=== PATIENT | female | born 1930 | race Caucasian/White ===

== ENCOUNTER 2018-11-29 19:24 | Emergency (ER) | payer OTHER ==
[2018-11-29 19:32] VITALS: TEMP 97.4; BMI 28.3
--- NOTE | 2018-11-29 20:07 | PDOC ---
History of Present Illness - General Chief Complaint: Injury Stated Complaint: FALL Time Seen by Provider: 11/29/18 19:42 - History of Present Illness Initial Comments: Lynda Odonnell is an 88yo woman with no known medical history who presents after a fall at home tonight. She is currently denying any injury or complaint. Ms Odonnell reports that she was walking into her bedroom and then suddenly found herself on the floor. She believes that she lost consciousness, and she states that she is sure she did not trip. She denies any feeling of chest pain, SOB, palpitations, lightheadedness, or any other symptom prior to the fall. She woke up on her own, but she says that she felt "funny" after the fall. She felt that she could move all of her extremities but felt unable to get up. Currently , she states that she feels completely normal and has no complaints. Past History - Past Medical History Allergies/Adverse Reactions: Allergies Allergy/AdvReac Type Severity Reaction Status Date / Time No Known Allergies Allergy Unverified 11/29/18 20:12 Home Medications: Ambulatory Orders NK [No Known Home Medication] 11/29/18 COPD: No Other medical history: denies - Suicide/Smoking/Psychosocial Hx Smoking History: Unknown if ever smoked Have you smoked in the past 12 months: No Information on smoking cessation initiated: No Hx Alcohol Use: No Drug/Substance Use Hx: No Review of Systems - Review of Systems Comments:: General: No fevers, no chills, no weight or appetite change, no malaise HEENT: No changes in vision, no changes in hearing, no congestion, no sore throat CV: No chest pain, no palpitations, no LE edema Pulm: No SOB, no cough, no wheezing GI: No nausea or vomiting, no change in bowel habits, no melena : No frequency, no urgency, no dysuria Musc: No back pain, no joint swelling, no recent injury Skin: No rash, no lesions, no erythema Endo: No excessive thirst, no heat/cold intolerance Heme: No unusual bruising or bleeding, no swollen glands Neuro: +LOC, no numbness/tingling, no focal weakness Vasc: No claudication Psych: No recent change in mood, no SI or HI *Physical Exam - Vital Signs Last Vital Signs Temp Pulse Resp BP Pulse Ox 97.4 F L 100 H 18 157/80 96 11/29/18 19:30 11/29/18 19:30 11/29/18 19:30 11/29/18 19:30 11/29/18 19:30 - Physical Exam Comments: General: Comfortable, no acute distress HEENT: PERRL, EOMI, MMM, voice normal, normal neck ROM, no LAD, no posterior neck TTP Cards: RRR, no murmur appreciated Pulm: Comfortable on room air, clear to auscultation bilaterally Abd: Soft, nontender, nondistended : No CVA tenderness Back: No TTP along spine or paraspinal muscles. Ext: Atraumatic. No LE edema. ROM intact. Strength 5/5 and equal bilaterally Vasc: Extremities WWP. Palpable radial and pedal pulses bilaterally Skin: Normal color, no rashes or lesions Neuro: A&Ox3, CN grossly intact, normal speech, motor/sensory grossly intact and symmetric Psych: Mood appropriate to situation Moderate Sedation - Procedure Monitoring Vital Signs: Procedure Monitoring Vital Signs Temperature 97.4 F L 11/29/18 19:30 Pulse Rate 100 H 11/29/18 19:30 Respiratory Rate 18 11/29/18 19:30 Blood Pressure 157/80 11/29/18 19:30 O2 Sat by Pulse Oximetry (%) 96 11/29/18 19:30 ED Treatment Course - LABORATORY CBC & Chemistry Diagram: 11/29/18 20:47 11/29/18 20:47 Medical Decision Making - Medical Decision Making 11/29/18 20:31 Lynda Odonnell is an 88yo woman with no known medical history who presents with an apparent LOC and fall at home this evening. She reports that she felt odd immediately after the fall, but she denies any injury or complaint at this time. - Fall does not appear to be mechanical in nature; Ms Odonnell states she was walking and then found herself on the ground. She does not believe that she tripped. - Could be secondary to arrhythmia, anemia, hypoglycemia, electrolyte abnormalities. Potentially PE or ACS, but less likely given lack of chest pain, SOB, or other associated symptoms - CBC, chemistry, EKG, CXR - CT head and c-spine to r/o bleed or acute injury given patient's age. However , no obvious injury. 11/29/18 22:09 - Labs completed. No concerning abnormalities noted. Mild hypomagensemia, hypoalbuminemia. - CT completed, reviewed in ED. No obvious bleed, fracture, or other injury. Radiology read pending - EKG showing a-fib, apparently new onset, w/ HR 106. Left axis deviation. Normal intervals. Poor r-wave progression, diffuse flattening of t-waves - Discussed admission for telemetry, cardiology evaluation with Ms Odonnell. She states that she "needs to go home." Dr Moura at bedside to again discuss admission. May need to have her AMA if she will not agree to admission. 11/29/18 22:20 - Ms Odonnell decided that she will leave AMA; she refuses admission - Will refer to cardiology and discuss return precautions 11/29/18 23:33 - Call received from Dr Mcleod (radiology) regarding c-spine CT. Initial read that there was no acute fracture, but will be changing read to indicate a non- displaced left C2 fracture - Hard c-collar placed - Discussed new result with Ms Odonnell. Strongly recommending that she stay for admission and treatment. Ms Odonnell continues to state she wishes to go home. Dr Moura will attempt to convince her to stay. - Per pt's nurse, Abbie, there was initially some concern that Ms Odonnell smelled of alcohol on arrival. Added alcohol level to chemistry sent previously. If she arrived intoxicated, will observe in the ED until clinically sober and will readdress admission. 11/30/18 00:06 - Alcohol level 168 - Will monitor in ED and re-address admission once Ms Odonnell is clinically sober - Pt pulled own IV. Will orally hydrate. 11/30/18 04:17 - Ms Odonnell is now clinically sober, A&Ox3. Appears to have significant difficulty ambulating without assistance. - After multiple discussions with both Dr Moura and myself, Ms Odonnell continues to insist on going home. She is unable to provide a reason why she wishes to leave, but she does appear to understand her diagnosis and the potential adverse outcomes of refusing treatment - Will attempt to get an ambulance to transport Ms Odonnell to her home. Discussed the potential consequences of leaving AMA as well as the importance of close follow up at length several times. 11/30/18 04:59 - BP now 204/100, HR 114. Could be alcohol withdrawal as pt denies h/o HTN, home BP meds, current pain, anxiety. - Librium 25mg PO ordered, will recheck Discussed with Dr Moura. Caitlyn Stanford PGY1 *DC/Admit/Observation/Transfer Diagnosis at time of Disposition: Fall Qualifiers: Encounter type: initial encounter Qualified Code(s): W19.XXXA - Unspecified fall, initial encounter Atrial fibrillation Qualifiers: Atrial fibrillation type: unspecified Qualified Code(s): I48.91 - Unspecified atrial fibrillation - Discharge Dispostion Disposition: AGAINST MEDICAL ADVICE Condition at time of disposition: Stable - Referrals Referrals: Raudel Coreas MD [Staff Physician] - Jennie Doan MD [Primary Care Provider] - Jhonathan Palencia MD, FAANS [Staff Physician] - - Patient Instructions Printed Discharge Instructions: DI for Atrial Fibrillation, DI for Cervical Neck Fracture Additional Instructions: Discharge Instructions: - You were seen in the emergency department for a fall at home - You were found to have an irregular heartbeat called atrial fibrillation. This may be the cause of your fall. - You were also found to have a non-displaced fracture of your C2 vertebrae - this is part of your spine in your neck. - It was recommended that you be admitted to the hospital for heart monitoring and to see a senior drafter and neurosurgeon. - You were given a neck brace. This should be worn at all times at home. Do not remove it until you see a neurosurgeon. You have been referred to Dr Palencia for follow up, and you should see him as soon as possible. Ideally, you should make an appointment tomorrow or Monday. - You will need to schedule an appointment with a senior drafter for evaluation in the next 2-3 days or as soon as possible. This appointment should also ideally be tomorrow or Monday. You will need additional evaluation and probably more testing. You have been referred to Dr Coreas. - Seek immediate medical attention if you have a racing heart, palpitations, chest pain, shortness of breath, dizziness, neck pain, numbness/tingling in your arms or legs, one-sided weakness, any neurological symptoms, or any additional loss of consciousness. - Post Discharge Activity
--- NOTE | 2018-11-29 20:23 | PDOC ---
Attending Attestation - HPI HPI: 11/29/18 21:04 The patient is a 88 year old female with unknown medical history, who presents to the emergency department today for evaluation after a syncopal fall. Patient states she was walking into her bedroom and then found herself on the floor. She reports that when she first woke up, it felt as if she could not move. The patient states she then called a neighbor who called EMS. Patient reports a similar episode several months ago, but did not follow up with a provider. She denies hitting her head. She does not recall how long she was on the floor. The patient denies chest pain, shortness of breath, headache and dizziness. Denies fever, chills, nausea, vomit, diarrhea and constipation. Denies dysuria, frequency, urgency and hematuria. Allergies: NKA Social history: None reported <Karoline Ferrell - Last Filed: 11/29/18 21:04> - Resident Resident Name: Caitlyn Stanford - ED Attending Attestation I have performed the following: I have examined & evaluated the patient, The case was reviewed & discussed with the resident, I agree w/resident's findings & plan, Exceptions are as noted - Physicial Exam PE: 11/29/18 22:48 Agree with exam as documented by resident AO to person, place, time - Medical Decision Making 11/29/18 20:21 88F no claimed PMH but has not had close primary care since her PCP Unwitnessed syncopal event, broad differential, ACS, arrythmia, anemia, seizure , cva, electrolyte f/u labs, ct b, cs will likely require admission 11/29/18 22:49 EKG shows afib with ventricular rate of 106, no anemia, no electrolyte derangement, BP wnl Plan is for admission to telemetry for monitoring and further work up. 11/30/18 07:29 CT cs read revised with +fx Patient re-evaluated, shows insight to her issues and able to expresses consequences of lack of treatment. Oriented x3 Refusing admission DC AMA <Joseph Moura - Last Filed: 11/30/18 07:31> Attestations - Attestations 11/29/18 21:04 Documentation prepared by Karoline Ferrell, acting as medical equipment technician for Joseph Moura MD. <Karoline Ferrell - Last Filed: 11/29/18 21:04>
[2018-11-29 21:24] LABS: ALBUMIN 3.3 g/dl (3.4-5.0); ALK PHOS 126 U/L (45-117); ANION GAP 12 MMOL/L (8-16); BILIRUBIN,TOTAL 0.5 mg/dL (0.2-1); BLOOD UREA NITROGEN 17 mg/dL (7-18); CALCIUM 8.5 mg/dL (8.5-10.1); CHLORIDE 103 mmol/L (98-107); CO2 27 mmol/L (21-32); CREATININE 0.9 mg/dL (0.55-1.3); GLUCOSE,RANDOM 118 mg/dL (74-106); MAGNESIUM 1.7 mg/dL (1.8-2.4); PHOSPHOROUS 2.9 mg/dL (2.5-4.9); POTASSIUM 3.9 mmol/L (3.5-5.1); SGOT/AST 17 U/L (15-37); SGPT/ALT 15 U/L (13-61); SODIUM 141 mmol/L (136-145); TOT PROT 6.8 g/dl (6.4-8.2)
[2018-11-29 21:32] LABS: BASO % 0.4 % (0-2.0); EOS % 0.1 % (0-4.5); HEMATOCRIT 42.6 % (32.4-45.2); HEMOGLOBIN 14.4 GM/dL (10.7-15.3); LYMPH % 14.5 % (8-40); MCH 35.3 pg (25.7-33.7); MCHC 33.9 g/dl (32.0-36.0); MEAN CELL VOLUME 104.1 fl (80-96); MEAN PLT VOLUME 8.4 fl (7.5-11.1); MONO % 4.6 % (3.8-10.2); NEUT % 80.4 % (42.8-82.8); PLATELET COUNT 108 K/MM3 (134-434); RBC 4.09 M/mm3 (3.60-5.2); WHITE BLOOD COUNT 6.4 K/mm3 (4.0-10.0)
[2018-11-30] MEDS ORDERED: chlordiazePOXIDE HCL 25 MG CAPSULE PO ONE (04:56)
[2018-11-30 05:12] VITALS: BP 185/95; PULSE 101
[2018-11-30] MEDS ORDERED: chlordiazePOXIDE HCL 25 MG CAPSULE ONE (05:14)
--- NOTE | 2018-11-30 11:57 | EKG ---
Test Reason : Blood Pressure : / mmHG Vent. Rate : 106 BPM Atrial Rate : 108 BPM P-R Int : 000 ms QRS Dur : 072 ms QT Int : 330 ms P-R-T Axes : 000 -20 091 degrees QTc Int : 438 ms POOR DATA QUALITY, INTERPRETATION MAY BE ADVERSELY AFFECTED ATRIAL FIBRILLATION WITH RAPID VENTRICULAR RESPONSE WITH PREMATURE VENTRICULAR OR ABERRANTLY CONDUCTED COMPLEXES INFERIOR INFARCT , AGE UNDETERMINED ANTEROSEPTAL INFARCT , AGE UNDETERMINED ABNORMAL ECG NO PREVIOUS ECGS AVAILABLE Confirmed by KATHYA GONZALES MD ([id number]) on 11/30/2018 11:56:58 AM Referred By: Confirmed By:KATHYA GONZALES MD
== END 2018-11-30 05:52 | disposition left against medical advice (07) ==
LOC: JER 19:24
DX: I48.91 Unspecified atrial fibrillation (principal)
CPT/HCPCS: 36415; 70450-TC; 71046-TC-FY; 72125-TC; 80053; 80307; 82550; 83735; 84100; 84484; 85025; 93005; 93010; 99283-25

== ENCOUNTER 2019-12-23 14:05 | Inpatient (IN) | payer OTHER ==
--- NOTE | 2019-12-23 15:41 | PDOC ---
History of Present Illness - General Chief Complaint: Injury Stated Complaint: FA Time Seen by Provider: 12/23/19 15:33 - History of Present Illness Initial Comments: 12/23/19 15:40 89 y/oF with PMH of C2 nondisplaced fracture, ?HTN and alcohol use brought to ED by neighbor after recurrent falls. According to the neighbor, the patient called him on 2 separate occasions s/p falls over the last 2 weeks. He found pt sitting on her buttocks on both occasions with no e/o head trauma. He also explains that the patient has been very SOB on exertion, worsening leg swelling and inability to ambulate. Neighbor is also concern as pt seems unable to care for herself and constantly falls. Also,there seems to be an issue of drinking; apparently her other neighbors bring her beers to drink. On further questioning , pt denies any precipitating symptoms such as change in vision, palpitation, chest pain , lightheadedness or LOC. She does endorse left hip/thigh pain only on ambulation/movement. Pt further denies, F/C/N/V/D or urinary changes. PSH: none Social HX: alcohol use ROS: Constitutional: no fever,no chills HEENT: no throat pain, no dysphagia Cardiovascular: no chest pain, no palpitations Respiratory: shortness of breath, orthopnea, no cough Gastrointestinal: no Nausea, vomiting Genitourinary: no dysuria no urgency Musculoskeletal: no myalgia, no arthralgia Skin: no bruising Neurologic: no headache, no focal weakness Psych: no agitation, no anxiety PE: GEN: NAD HEENT: PERRLA, moist membrane, clear conjunctiva NECK: no JVD CHEST: vesicular breath sounds b/l midly reduced at the bases HEART: RRR no murmur, rubs or gallop ABDOMEN: + BS, obese abdomen, NT Extremities: 2+ pulses, significant edema to the knees SKIN: no bruises MSK: no arthralgia no joint tenderness but present on ambulation. 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 12/23/19 15:41 cbc, cmp, mag, phos, ekg, UA, cardiac profile, head CT, C spine CT, lumbar, R&L hip xray 12/23/19 17:21 lumbar and Hip Xrays no acute pathology 12/23/19 17:25 CBC WBC 5.8 K/mm3 (4.0-10.0) 12/23/19 17:00 RBC 3.55 M/mm3 (3.60-5.2) L 12/23/19 17:00 Hgb 11.9 GM/dL (10.7-15.3) 12/23/19 17:00 Hct 36.4 % (32.4-45.2) 12/23/19 17:00 MCV 102.5 fl (80-96) H 12/23/19 17:00 MCH 33.6 pg (25.7-33.7) 12/23/19 17:00 MCHC 32.8 g/dl (32.0-36.0) 12/23/19 17:00 RDW 17.5 % (11.6-15.6) H 12/23/19 17:00 Plt Count 131 K/MM3 (134-434) L D 12/23/19 17:00 MPV 8.2 fl (7.5-11.1) 12/23/19 17:00 Absolute Neuts (auto) 4.2 K/mm3 (1.5-8.0) 12/23/19 17:00 Neutrophils % 71.8 % (42.8-82.8) 12/23/19 17:00 Lymphocytes % 20.0 % (8-40) D 12/23/19 17:00 Monocytes % 7.2 % (3.8-10.2) 12/23/19 17:00 Eosinophils % 0.2 % (0-4.5) D 12/23/19 17:00 Basophils % 0.8 % (0-2.0) 12/23/19 17:00 Nucleated RBC % 0 % (0-0) 12/23/19 17:00 12/23/19 18:36 CMP Sodium 140 mmol/L (136-145) 12/23/19 16:17 Potassium 4.3 mmol/L (3.5-5.1) 12/23/19 16:17 Chloride 104 mmol/L (98-107) 12/23/19 16:17 Carbon Dioxide 29 mmol/L (21-32) 12/23/19 16:17 Anion Gap 7 MMOL/L (8-16) L 12/23/19 16:17 BUN 15.9 mg/dL (7-18) 12/23/19 16:17 Creatinine 1.0 mg/dL (0.55-1.3) 12/23/19 16:17 Est GFR (CKD-EPI)AfAm 58.66 12/23/19 16:17 Est GFR (CKD-EPI)NonAf 50.61 12/23/19 16:17 Random Glucose 86 mg/dL (74-106) 12/23/19 16:17 Calcium 9.2 mg/dL (8.5-10.1) 12/23/19 16:17 Phosphorus 3.6 mg/dL (2.5-4.9) 12/23/19 16:17 Magnesium 1.7 mg/dL (1.8-2.4) L 12/23/19 16:17 Total Bilirubin 1.2 mg/dL (0.2-1) H 12/23/19 16:17 AST 25 U/L (15-37) 12/23/19 16:17 ALT 14 U/L (13-61) 12/23/19 16:17 Alkaline Phosphatase 117 U/L (45-117) 12/23/19 16:17 Creatine Kinase 251 U/L (26-192) H 12/23/19 16:17 Troponin I 0.03 ng/ml (0.00-0.05) 12/23/19 16:17 B-Natriuretic Peptide 2767.1 pg/ml (5-450) H 12/23/19 16:17 Total Protein 6.2 g/dl (6.4-8.2) L 12/23/19 16:17 Albumin 3.1 g/dl (3.4-5.0) L 12/23/19 16:17 mildly hypomagnesimia, trop 0.03, BNP 2767.1, tbil 1.2, ck 251 EKG with Afib but rate 93 , QTC 445 12/23/19 19:[address] no interval Changes from 11/29 CT scan C spine pending, UA also pending pt continues to c/o left hip pain will order CT for better assessment 12/23/19 19:41 will send admission microblog 12/23/19 20:05 patient signed out to admitting team 12/23/19 20:49 12/23/19 20:53 Past History - Past Medical History Allergies/Adverse Reactions: Allergies Allergy/AdvReac Type Severity Reaction Status Date / Time No Known Allergies Allergy Unverified 12/23/19 14:36 Home Medications: Ambulatory Orders NK [No Known Home Medication] 11/29/18 COPD: No - Psycho Social/Smoking Cessation Hx Smoking History: Unknown if ever smoked Have you smoked in the past 12 months: No Hx Alcohol Use: No Drug/Substance Use Hx: No *Physical Exam - Vital Signs Last Vital Signs Temp Pulse Resp BP Pulse Ox 97.8 F 105 H 18 183/100 H 96 12/23/19 14:36 12/23/19 14:36 12/23/19 14:36 12/23/19 14:36 12/23/19 14:36 ED Treatment Course - LABORATORY CBC & Chemistry Diagram: 12/24/19 06:00 12/24/19 06:00 Discharge - Discharge Information Problems reviewed: Yes Clinical Impression/Diagnosis: Fall Qualifiers: Encounter type: initial encounter Qualified Code(s): W19.XXXA - Unspecified fall, initial encounter Condition: Guarded - Admission Yes - Follow up/Referral - Patient Discharge Instructions - Post Discharge Activity
[2019-12-23 18:15] LABS: BASO % 0.8 % (0-2.0); EOS % 0.2 % (0-4.5); HEMATOCRIT 36.4 % (32.4-45.2); HEMOGLOBIN 11.9 GM/dL (10.7-15.3); MCH 33.6 pg (25.7-33.7); MCHC 32.8 g/dl (32.0-36.0); MEAN CELL VOLUME 102.5 fl (80-96); MEAN PLT VOLUME 8.2 fl (7.5-11.1); MONO % 7.2 % (3.8-10.2); NEUT % 71.8 % (42.8-82.8); PLATELET COUNT 131 K/MM3 (134-434); RBC 3.55 M/mm3 (3.60-5.2); RDW 17.5 % (11.6-15.6); WHITE BLOOD COUNT 5.8 K/mm3 (4.0-10.0)
[2019-12-23 18:46] LABS: N-TERMINAL BNP 2767.1 pg/ml (5-450); PHOSPHOROUS 3.6 mg/dL (2.5-4.9)
[2019-12-23 18:51] LABS: ALBUMIN 3.1 g/dl (3.4-5.0); ALK PHOS 117 U/L (45-117); ANION GAP 7 MMOL/L (8-16); BILIRUBIN,TOTAL 1.2 mg/dL (0.2-1); BLOOD UREA NITROGEN 15.9 mg/dL (7-18); CALCIUM 9.2 mg/dL (8.5-10.1); CHLORIDE 104 mmol/L (98-107); CO2 29 mmol/L (21-32); GLUCOSE,RANDOM 86 mg/dL (74-106); MAGNESIUM 1.7 mg/dL (1.8-2.4); POTASSIUM 4.3 mmol/L (3.5-5.1); SGOT/AST 25 U/L (15-37); SGPT/ALT 14 U/L (13-61); SODIUM 140 mmol/L (136-145); TOT PROT 6.2 g/dl (6.4-8.2)
--- NOTE | 2019-12-23 18:54 | PDOC ---
Attending Attestation - Resident Resident Name: Brittany Knight - ED Attending Attestation I have performed the following: I have examined & evaluated the patient, The case was reviewed & discussed with the resident, I agree w/resident's findings & plan, Exceptions are as noted - HPI HPI: 12/23/19 18:54 This 89-year-old female was found by family on the floor on Monday. It was unknown how long she had been down on the floor. She now complains of left hip pain past medical history of dementia
[2019-12-23] MEDS ORDERED: ACETAMINOPHEN 1000 MG/100 ML VIAL (NON FORMULARY) IVPB ONE (20:01)
--- NOTE | 2019-12-23 20:39 | PN ---
Teaching Attending Note Name of Resident: Deja Dietrich ATTENDING PHYSICIAN STATEMENT I saw and evaluated the patient. I reviewed the resident's note and discussed the case with the resident. I agree with the resident's findings and plan as documented. SUBJECTIVE: 89Woman with history of C2 nondisplaced fracture, HTN and alcohol Abuse, recurrent falls, atrial fibrillation (patient with no recollection) brought into hospital with neighbor after a fall. Patient states that she fell at 7 PM , fell on her buttocks from her bed. Denied any head trauma. As per neighbor patient with multiple falls. There is some concern for drinking however patient denies drinking. Denied any chest pain, shortness of breath, headaches. Reports left hip pain with movement OBJECTIVE: Last Vital Signs Temp Pulse Resp BP Pulse Ox 97.8 F 100 H 20 195/96 H 94 L 12/23/19 14:36 12/23/19 22:43 12/23/19 22:43 12/23/19 23:01 12/23/19 22:43 On physical exam patient was an elderly,Unkept, disheveled morbidly obese woman not in any acute distress. Head and neck exam was normal, atraumatic, normal sclera, nonicteric, neck supple. Cardiovascular examS1, S2, regular rate and rhythm. Lungs are clear to auscultation bilaterally, left hip tender to palpation. No obvious deformities noted. No ecchymosis of skin appreciated. Lower extremities with 3+ pitting edema up to knees, unkept nails bilaterally, erythema in lower extremities up to mid shins bilaterally. Warm to touch. Negative Homans signs bilaterally. Abnormal Lab Results 12/23/19 12/23/19 12/23/19 16:17 16:17 17:00 RBC 3.55 L MCV 102.5 H RDW 17.5 H Plt Count 131 L D Anion Gap 7 L Magnesium 1.7 L Total Bilirubin 1.2 H Creatine Kinase 251 H CK-MB (CK-2) 3.7 H B-Natriuretic Peptide 2767.1 H Total Protein 6.2 L Albumin 3.1 L Imaging studies reviewedEKG noted for atrial fibrillation. CT of pelvis and left lower extremity without contrastno pelvis or left hip fracture seen. Left iliopsoas muscle is larger than the left and demonstrated focal slightly increased internal density possibly representing blood. No discrete hematoma is visualized. Marketed L4-L5 central canal stenosis. Head CT without any evidence of acute intracranial pathology, cervical spine CT no fracture identified, multilevel degenerative disc and facet joint changes were noted. ASSESSMENT AND PLAN: Atrial fibrillation never previously addressed, never worked up. Admit to telemetry Transthoracic echo Urine drug screen TSH Cardiology evaluation We will start heparin drip for now #Frequent fallssuspect likely secondary to EtOH abuse. Also noted to have marketed L4-L5 central canal stenosis which may contribute to pain ataxia frequent falls Neurology evaluation Bedrest and fall precautions PT evaluation Vitamin B12 level MO #Mild rhabdomyolysis IV fluid hydration #Hypomagnesemiamay be in setting of chronic alcoholism Supplement magnesium #History of alcohol abuse CIWA protocol Ativan as needed Thiamine, folate, multivitamin #Lower extremity cellulitis and unkept nails Doppler ultrasound to rule out DVT Cefazolin for cellulitis Blood cultures were sent Podiatry for nail debridement #Hypoalbuminemiasuspect likely secondary to malnutrition #Thrombocytopeniamay be secondary to chronic alcoholism Abdominal ultrasound to rule out splenomegaly DVT prophylaxisheparin subcutaneously
--- NOTE | 2019-12-23 20:55 | HP ---
CHIEF COMPLAINT: L hip pain PCP: Dr. Irving HISTORY OF PRESENT ILLNESS: 89 y.o. F PMH HTN, prior fall in October 2019 w/ C2 fracture, history of possible alcohol abuse presenting for left hip pain s/p fall. The patient states on monday she fell at home while trying to get out of bed; did not hit her head, denies LOC. At baseline she ambulates with a walker but did not have it present while getting out of bed on monday. She is unsure how long she was down for. States she was having progressively worsening L hip pain so asked her neighbor to bring her to the ED. Did not take anything at home to help with the pain however on my exam patient says the hip pain has resolved. She has also been experiencing LE edema x 1-2 weeks. Denies LE pain however she is having difficulty ambulating. ER course was notable for: (1) HTN 183/100; 194/89 on my exam (2) (3) Recent Travel: denies PAST MEDICAL HISTORY: as per hpi PAST SURGICAL HISTORY: none Social History: Smoking: denies Alcohol: endorses social use, not daily, unable to quantify Drugs: denies Allergies No Known Allergies Allergy (Unverified 12/23/19 14:36) HOME MEDICATIONS: Home Medications Medication Instructions Recorded NK [No Known Home Medication] 11/29/18 REVIEW OF SYSTEMS CONSTITUTIONAL: Absent: fever, chills, diaphoresis, generalized weakness, malaise, loss of appetite, weight change HEENT: Absent: rhinorrhea, nasal congestion, throat pain, throat swelling, difficulty swallowing, mouth swelling, ear pain, eye pain, visual changes CARDIOVASCULAR: peripheral edema Absent: chest pain, syncope, palpitations, irregular heart rate, lightheadedness RESPIRATORY: Absent: cough, shortness of breath, dyspnea with exertion, orthopnea, wheezing, stridor, hemoptysis GASTROINTESTINAL: Absent: abdominal pain, abdominal distension, nausea, vomiting, diarrhea, constipation, melena, hematochezia GENITOURINARY: Absent: dysuria, frequency, urgency, hesitancy, hematuria, flank pain, genital pain MUSCULOSKELETAL: L hip pain Absent: myalgia, arthralgia, joint swelling, back pain, neck pain SKIN: LE venous stasis changes Absent: rash, itching, pallor HEMATOLOGIC/IMMUNOLOGIC: Absent: easy bleeding, easy bruising, lymphadenopathy, frequent infections ENDOCRINE: Absent: unexplained weight gain, unexplained weight loss, heat intolerance, cold intolerance NEUROLOGIC: unsteady gait Absent: headache, focal weakness or paresthesias, dizziness, seizure, mental status changes, bladder or bowel incontinence PSYCHIATRIC: Absent: anxiety, depression, suicidal or homicidal ideation, hallucinations. PHYSICAL EXAMINATION Vital Signs - 24 hr 12/23/19 14:36 Temperature 97.8 F Pulse Rate 105 H Respiratory 18 Rate Blood Pressure 183/100 H O2 Sat by Pulse 96 Oximetry (%) GENERAL: Awake, alert, and fully oriented, in no acute distress. HEENT: NCAT EOMI MMM LUNGS: Breath sounds equal, clear to auscultation bilaterally. No wheezes, and no crackles. No accessory muscle use. HEART: Regular rate and rhythm, normal S1 and S2 without murmur, rub or gallop. ABDOMEN: Soft, nontender, not distended, normoactive bowel sounds, no guarding. MUSCULOSKELETAL: Good range of motion at all joints. EXTREMITIES: 2+ pulses, warm, well-perfused. 2+ pitting edema LLE, 1+ pitting edema LLE. B/l LE warm to touch below knee. NEUROLOGICAL: Cranial nerves II-XII intact. Unsteady gait. + dysmetria/ dysdiadochokinesia. Motor 5/5 all extremities. Sensory intact throughout. PSYCHIATRIC: Appropriate mood and affect. SKIN: chronic LE skin changes Laboratory Results - last 24 hr 12/23/19 12/23/19 12/23/19 16:17 16:17 17:00 WBC 5.8 RBC 3.55 L Hgb 11.9 Hct 36.4 MCV 102.5 H MCH 33.6 MCHC 32.8 RDW 17.5 H Plt Count 131 L D MPV 8.2 Absolute Neuts (auto) 4.2 Neutrophils % 71.8 Lymphocytes % 20.0 D Monocytes % 7.2 Eosinophils % 0.2 D Basophils % 0.8 Nucleated RBC % 0 Sodium 140 Potassium 4.3 Chloride 104 Carbon Dioxide 29 Anion Gap 7 L BUN 15.9 Creatinine 1.0 Est GFR (CKD-EPI)AfAm 58.66 Est GFR (CKD-EPI)NonAf 50.61 Random Glucose 86 Calcium 9.2 Phosphorus 3.6 Magnesium 1.7 L Total Bilirubin 1.2 H AST 25 ALT 14 Alkaline Phosphatase 117 Creatine Kinase 251 H Creatine Kinase Index 1.4 CK-MB (CK-2) 3.7 H Troponin I 0.03 B-Natriuretic Peptide 2767.1 H Total Protein 6.2 L Albumin 3.1 L Alcohol, Quantitative < 3 ASSESSMENT/PLAN: 89 y.o. F PMH HTN, prior fall in October 2019 w/ C2 fracture, history of possible alcohol abuse presenting for left hip pain s/p fall. #Mechanical fall -CT head neg for acute pathology -XR b/l hips, lumbar XR negative for acute fracture -f/u CT c-spine; had recent c2 fracture 1 month ago s/p fall -CPK elevated-- giving gentle hydration -f/u b12, folate levels, tsh, u-tox -f/u LE U/S, echo -fall precautions -physical therapy eval #Cellulitis of lower extremities -patient has poor hygiene care -f/u LE U/S -cefazolin abx -monitor for fevers -no leukocytosis, continue to monitor -topical bacitracin -podiatry consulted #L4-L5 spinal stenosis -noted on pelvis CT -neuro consulted, f/u recs #A-fib -reported to have during last visit -never started on AC, 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 qtc 445. No ST changes -trop negative x 2 -frequent bp checks #EtOH abuse -thrombocytopenia, macrocytosis-- f/u am cbc, lievr ultrasound -alcohol level wnl; patient cannot remember time of last drink -multivitamin/ folic acid/ thiamine -fall & seizure precautions #Hyperbilirubinemia -total bili 1.2 -f/u direct bili -RUQ U/S #FEN -ns @75cc/hr -hypomagnesemia repleted -sodium controlled diet #PPX -heparin sq #Dispo med surg Visit type - Emergency Visit Emergency Visit: Yes ED Registration Date: 12/23/19 Care time: The patient presented to the Emergency Department on the above date and was hospitalized for further evaluation of their emergent condition. - New Patient This patient is new to me today: Yes Date on this admission: 12/24/19 - Critical Care Critical Care patient: No ATTENDING PHYSICIAN STATEMENT I saw and evaluated the patient. I reviewed the resident's note and discussed the case with the resident. I agree with the resident's findings and plan as documented. SUBJECTIVE: OBJECTIVE: ASSESSMENT AND PLAN:
--- NOTE | 2019-12-23 21:08 | PDOC ---
Documentation entered by Jannette Muhammad SCRIBE, acting as scribe for Gabbie Regan MD. Gabbie Regan MD: This documentation has been prepared by the scribe, Jannette Muhammad SCRIBE, under my direction and personally reviewed by me in its entirety. I confirm that the documentation accurately reflects all work, treatment, procedures, and medical decision making performed by me. Attending Attestation - Resident Resident Name: Brittany Knight - ED Attending Attestation I have performed the following: I have examined & evaluated the patient, The case was reviewed & discussed with the resident, I agree w/resident's findings & plan, Exceptions are as noted - HPI HPI: 12/23/19 20:38 The patient is an 89-year-old female with a past medical history significant for ETOH abuse, C2 nondisplaced fracture, and dementia who presents to the emergency department after being found on the ground by a neighbor. The patient suffered a fall on Monday and was down by a neighbor. The patient is reporting left hip pain. Denies fever or chills. - Physicial Exam PE: 12/23/19 20:38 GENERAL: Disheveled 89 year old female, poor hygiene. No apparent distress. HEENT: Normocephalic, atraumatic. PERRL, EOM intact. CARDIOVASCULAR: Regular rate and rhythm. PULMONARY: Clear to auscultation bilaterally. ABDOMEN: Protuberant abdomen, Soft, non-tender. BACK: no midlind, cervical or vertebral tenderness. EXTREMITIES: left hip pain unable to raise the left leg off the gurney, right leg raise without pain. chronic venous stasis, bilateral 3+ pitting edema to the lower extremities with cellulitis, extended fungal infection on toes. SKIN: Warm, dry. No rash NEUROLOGICAL: Alert and oriented x1. - Medical Decision Making 12/23/19 20:39 This 89-year-old female was found by family on the floor on Monday. It was unknown how long she had been down on the floor. She now complains of left hip pain past medical history of dementia 12/23/19 21:07 Patient has new left hip pain and is unable to lift it off the gurney. Plain films did not show a fracture but a CAT scan of the of the extremity will be done to rule out an occult fracture since she is unable to move the leg 12/24/19 00:59 ct scan of hip and pelvis is negative for any acute fracture pt admitted
[2019-12-23] MEDS ORDERED: ACETAMINOPHEN INJECTION 100 ML IVPB ONE (21:26)
[2019-12-23] MEDS ORDERED: METOPROLOL TARTRATE 5 MG/5 ML VIAL IVPUSH ONE (21:29)
[2019-12-23] MEDS ORDERED: amLODIPine BESYLATE 5 MG TABLET (FP) PO SCH (21:30)
[2019-12-23] MEDS ORDERED: HEPARIN NA (PORCINE) 5,000 UNITS/ML 1ML VIAL SQ SCH (22:00)
[2019-12-23] MEDS ORDERED: amLODIPine BESYLATE 10 MG TABLET (FP) PO SCH (22:45)
[2019-12-23] MEDS ORDERED: METOPROLOL TARTRATE 5 MG/5 ML VIAL ONE (22:56)
[2019-12-23] MEDS ORDERED: SODIUM CHLORIDE 1,000 ML IV SCH (23:00)
[2019-12-23] MEDS ORDERED: HEPARIN - 25,000 UNIT in SODIUM CHLORIDE 495 ML IV SCH (23:45)
[2019-12-23] MEDS ORDERED: HEPARIN NA (PORCINE) 5,000 UNITS/ML 1ML VIAL IVPUSH PRN ×2 (23:50)
[2019-12-24] MEDS ORDERED: METOPROLOL TARTRATE 5 MG/5 ML VIAL IVPUSH ONE (01:18)
[2019-12-24] MEDS ORDERED: CEFAZOLIN 1 GM in DEXTROSE 5%-WATER - 50 ML IVPB SCH (02:00)
[2019-12-24] MEDS ORDERED: CEFAZOLIN 1 GM/D5W 1 GM/50 ML BAG ONE ×2 (02:11→09:27)
[2019-12-24] MEDS ORDERED: METOPROLOL TARTRATE 5 MG/5 ML VIAL ONE (02:12)
[2019-12-24] MEDS: FOLIC ACID 1 MG TABLET (FP) PO SCH ×2 (02:31→10:02)
[2019-12-24] MEDS: THIAMINE HCL 100 MG TABLET (FP) PO SCH ×2 (02:31→10:03)
[2019-12-24] MEDS: MULTIVITAMINS (DAILY MVI) TABLET (FP) PO SCH ×2 (02:31→10:03)
[2019-12-24] MEDS: BACITRACIN 0.9 GM PACKET TP SCH ×3 (05:01→23:26)
[2019-12-24] MEDS ORDERED: MAGNESIUM SULF 50% (8.12 MEQ/2 ML-1 GM VIAL) IVPB ONE (05:20)
[2019-12-24] MEDS ORDERED: MAGNESIUM 1GM/D5W - 1 GM/100 ML IVPB IVPB ONE (06:02)
[2019-12-24 06:48] LABS: BASO % 0.7 % (0-2.0); EOS % 0.3 % (0-4.5); HEMATOCRIT 35.2 % (32.4-45.2); HEMOGLOBIN 11.6 GM/dL (10.7-15.3); LYMPH % 27.2 % (8-40); MCH 33.9 pg (25.7-33.7); MCHC 32.9 g/dl (32.0-36.0); MEAN PLT VOLUME 7.9 fl (7.5-11.1); MONO % 7.1 % (3.8-10.2); NEUT % 64.7 % (42.8-82.8); PLATELET COUNT 110 K/MM3 (134-434); RBC 3.42 M/mm3 (3.60-5.2); RDW 17.7 % (11.6-15.6)
[2019-12-24 07:00] LABS: INR 1.04 (0.83-1.09); PROTHROMBIN TIME (PATIENT) 12.3 SEC (9.7-13.0)
[2019-12-24 07:03] LABS: ACTIVATED PTT 37.3 SECONDS (25.2-36.5)
[2019-12-24 07:36] LABS: ALBUMIN 2.7 g/dl (3.4-5.0); BILIRUBIN,DIRECT 0.4 mg/dL (0.0-0.2); BLOOD UREA NITROGEN 15.6 mg/dL (7-18); CALCIUM 8.2 mg/dL (8.5-10.1); CREATININE 0.9 mg/dL (0.55-1.3); POTASSIUM 3.5 mmol/L (3.5-5.1); TOT PROT 5.6 g/dl (6.4-8.2)
[2019-12-24] MEDS ORDERED: LISINOPRIL 5 MG TABLET (FP) ONE (09:27)
--- NOTE | 2019-12-24 09:40 | EKG ---
Test Reason : Blood Pressure : / mmHG Vent. Rate : 093 BPM Atrial Rate : 088 BPM P-R Int : 000 ms QRS Dur : 076 ms QT Int : 358 ms P-R-T Axes : 000 000 036 degrees QTc Int : 445 ms ATRIAL FIBRILLATION ANTERIOR INFARCT (CITED ON OR BEFORE 29-NOV-2018) ABNORMAL ECG WHEN COMPARED WITH ECG OF 29-NOV-2018 20:57, QUESTIONABLE CHANGE IN INITIAL FORCES OF SEPTAL LEADS Confirmed by Mauricio Bravo MD ([id number]) on 12/24/2019 9:40:38 AM Referred By: Confirmed By:Mauricio Bravo MD
[2019-12-24] MEDS ORDERED: metoPROLOL SUCCINATE 25 MG TAB.SR.24H (FP) PO SCH ×2 (10:00→13:16)
[2019-12-24] MEDS ORDERED: FUROSEMIDE 20 MG TABLET (FP) PO SCH ×3 (10:00→12:39)
[2019-12-24] MEDS: LISINOPRIL 10 MG TABLET (FP) PO SCH (10:03)
--- NOTE | 2019-12-24 10:09 | ECHO ---
Name: ISAIASJG THOMAS Exam:Adult Echocardiogram Study Date: 12/24/2019 08:35 AM Age: 89 yrs Reason For Study: fall MMode/2D Measurements & Calculations IVSd: 0.98 cm Ao root diam: 3.0 cm LVIDd: 4.0 cm LA dimension: 4.5 cm LVIDs: 2.9 cm LVPWd: 1.4 cm LVPWs: 1.4 cm EDV(Teich): 69.7 ml ESV(Teich): 31.2 ml LVOT diam: 2.0 cm LAV (MOD-bp): 149.0 ml TAPSE: 2.3 cm RV S Dinesh: 12.9 cm/sec Doppler Measurements & Calculations MV E max dinesh: 107.0 cm/sec Ao V2 max: 165.4 cm/sec MV A max dinesh: 38.8 cm/sec Ao max P.0 mmHg MV E/A: 2.8 PITER(V,D): 1.7 cm2 MV dec time: 0.12 sec LV V1 max P.4 mmHg MR max dinesh: 643.9 cm/sec LV V1 max: 92.6 cm/sec MR max P.9 mmHg PA V2 max: 105.2 cm/sec Med Peak E' Dinesh: 5.3 cm/sec PA max P.4 mmHg Med E/e': 20.1 Lat Peak E' Dinesh: 12.1 cm/sec Lat E/e': 8.9 Procedure A complete two-dimensional transthoracic echocardiogram was performed (2D, M-mode, Doppler and color flow Doppler). Left Ventricle The left ventricular size, thickness and function are normal. Ejection Fraction = 60%. The transmitra l spectral Doppler flow pattern is suggestive of impaired LV relaxation. The left ventricular wall cynthia on is normal. Right Ventricle The right ventricle is normal in size and function. Atria The left atrium is moderately dilated. The right atrium is moderately dilated. Mitral Valve There is trivial mitral valve thickening. There is mild mitral annular calcification. There is mild m itral regurgitation. Tricuspid Valve The tricuspid valve is normal in structure and function. There is trace tricuspid regurgitation. Ther e was insufficient TR detected to calculate RV systolic pressure. Aortic Valve There is mild aortic valve thickening. Trace aortic regurgitation. Pulmonic Valve The pulmonic valve is not well seen, but is grossly normal. Great Vessels The aortic root is normal size. Pericardium/Pleura There is no pericardial effusion. There is no pleural effusion. Interpretation Summary The left ventricular size, thickness and function are normal Ejection Fraction = 60%. The left atrium is moderately dilated. The right atrium is moderately dilated. There is trivial mitral valve thickening. There is mild mitral annular calcification. There is mild mitral regurgitation. There is trace tricuspid regurgitation. There is mild aortic valve thickening. Trace aortic regurgitation. MD Mauricio Bravo 12/24/2019 10:08 AM
[2019-12-24] MEDS ORDERED: FUROSEMIDE 40 MG TABLET (FP) ONE (10:43)
--- NOTE | 2019-12-24 13:01 | PN ---
Teaching Attending Note Name of Resident: Corky Mejia ATTENDING PHYSICIAN STATEMENT I saw and evaluated the patient. I reviewed the resident's note and discussed the case with the resident. I agree with the resident's findings and plan as documented. SUBJECTIVE: she denies any SOB , reports LE edema which is recent. admits to seeing Dr. Coreas about a month ago. she showed a bottle of toprol 25 mg daily and she reports taking a baby aspirin daily . she takes no other meds ( the date on bottle was 08/17) . denies abd pain . no light headedness. she says she has not seen a doctor in a long while . OBJECTIVE: NAD, awake , alert, cooperative. CV: RRR, no MRG , + JVD Lungs: bibasilar crackles at bases ABd: soft, NT, ND , NL BS . red moist rash under the R breast Ext : 1+ pitting edema on legs and thighs. erytehma on lower part of legs ASSESSMENT AND PLAN: 89 y/o lady with h/o A fib, not on AC, C 2 Fx, recurrent falls, ETOH use, and HTN who presented with a fall few days ago. 1- Fall: due to probably muscle weakness, deconditioning, or imbalance . Can't r /o syncope. B12, folate, TSH noted trauma w/u did not show any Fx, but showed possible blood density in L iliopsoas muscle. Dc heparin gtt PT eval 2- Acute Diastolic heart failure: - start po lasix 40 mg daily - monitor renal function - Echo reviewed. 3- H/o A fib: CHADS2-VASC is 5. high risk for stroke. but the risk for bleeding given her frequent falls, and non compliance. Also , she already has CT evidence of blood in L iliopsoas muscle - dc heparin gtt - hold off starting heparin due to the bleeding in L iliopsoas muscle - Aspirin use will be probably safe in the near future if repeat imaging in few days shows stable finding. - start her home dose toprol 25 mg daily 4- HTN urgency : - cont metoprolol - cont lisinopril which was started last night 5- Possible iliopsoas bleed on CT scan: - will repeat CT scan in few days - hold off any antiplatelet and any AC 6- Incidental liver lesion ,? cyst. need out pt monitoring and imaging ( triple face CT or MRI ) 7- L ovarian cyst, 2 cm. Out pt follow up 8- Spinal stenosis at level or L4-L5. out pt f.u with neuro sx 9- fungal infection under R breast: use topical nystatin powder. DVT PX: SCDs for now.
--- NOTE | 2019-12-24 13:29 | CON.CARD ---
Consult Consult Specialty:: Cardiology Referred by:: Dr. Robledo Reason for Consultation:: Atrial fibrillation - History of Present Illness Chief Complaint: fall History of Present Illness: 89 F with prior falls, prior C2 fracture, ETOH abuse as per chart, again admitted with a fall She denies CP, SOB, palps. Denies LOC. Work up in ER including CT scans: no fracture. She was found to be in atrial fibrillation. Denies palpitations. No PND/orthopnea, lives alone. ECG: Atrial fibrillation at 93bpm, Poor R wave progression. BNP 2767 + LE edema and cellulitis. LE duplex negative - History Source History Provided By: Patient, Medical Record Limitations to Obtaining History: No Limitations - Past Medical History Cardio/Vascular: Yes: HTN Pulmonary: No: Asthma, Bronchitis, Cancer, COPD, O2 Dependent, Pneumonia, Previously Intubated, Pulmonary Embolus, Pulmonary Fibrosis, Sleep Apnea, Other Gastrointestinal: No: Ascites, Cancer, Constipation, Crohn's Disease, Diverticulitis, Diverticulosis, Esophageal Varices, Gastritis, GERD, GI Bleed, Hemorrhoids, Hiatal Hernia, Inflamatory Bowel Disease, Irritable Bowel Disease, Pancreatitis, Peptic Ulcer Disease, Ulcerative Colitis, Other Hepatobiliary: No: Cirrhosis, Cholelithiasis, Cholecystitis, Choledocholithiasis , Hepatitis A, Hepatitis B, Hepatitis C, Other Renal/: No: Renal Failure, Renal Inusuff, BPH, Cancer, Hematuria, Hemodialysis , Neurogenic Bladder, Renal Calculi, UTI, Other Reproductive: No: Ectopic , Endometriosis, Fibroids, PID, Polycystic Ovary Syndrome, Postmenopausal, Other Infectious Disease: No: AIDS, C-Diff, Herpes Zoster, HIV, MRSA, STD's, Tuberculosis, VREF, Other Psych: No: Addictions, Anxiety, Bipolar, Depression, Panic, Psychosis, Schizophrenia, Other Musculoskeletal: No: Bursitis, Chronic low back pain, Hemiparesis, Hemiplegia, Osteoarthritis, Paraplegia, Other Rheumatology: No: Fibromyalgia, Gout, Lupus, Rheumatoid Arthritis, Sarcoidosis, Vasculitis, Other ENT: No: Allergic Rhinitis, Sinusitis, Other Endocrine: No: Humphrey's Disease, [place]'s Disease, Diabetes Insipidus, Diabetes Mellitus, Hyperparathyroidism, Hyperthyroidism, Hypothyroidism, Osteopenia, SIADH, Other Dermatology: No: Basal Cell, Cellulitis, Eczema, Melanoma, Psoriasis, Squamous Cell, Other - Alcohol/Substance Use Hx Alcohol Use: No - Smoking History Smoking history: Unknown if ever smoked Have you smoked in the past 12 months: No - Social History ADL: Independent History of Recent Travel: No Home Medications - Allergies Allergies/Adverse Reactions: Allergies Allergy/AdvReac Type Severity Reaction Status Date / Time No Known Allergies Allergy Unverified 12/23/19 14:36 - Home Medications Home Medications: Ambulatory Orders NK [No Known Home Medication] 11/29/18 Family Medical History Family History: Unremarkable Review of Systems - Review of Systems Constitutional: reports: No Symptoms Eyes: reports: No Symptoms HENT: reports: No Symptoms Neck: reports: No Symptoms Cardiovascular: reports: No Symptoms Respiratory: reports: No Symptoms Gastrointestinal: reports: No Symptoms Genitourinary: reports: No Symptoms Breasts: reports: No Symptoms Reported Musculoskeletal: reports: No Symptoms Neurological: reports: No Symptoms Endocrine: reports: No Symptoms Hematology/Lymphatic: reports: No Symptoms Psychiatric: reports: No Symptoms - Risk Factors Known Risk Factors: Yes: Hypertension Vital Signs: Vital Signs Temperature 98.4 F 12/24/19 09:00 Pulse Rate 110 H 12/24/19 09:00 Respiratory Rate 12/24/19 09:00 Blood Pressure 135/81 12/24/19 09:00 O2 Sat by Pulse Oximetry (%) 99 12/24/19 07:53 Constitutional: Yes: No Distress, Calm Eyes: Yes: Conjunctiva Clear Respiratory: Yes: CTA Bilaterally Gastrointestinal: Yes: Soft (NT) Cardiovascular: Yes: Regular Rate and Rhythm JVD: No Carotid Bruit: No PMI: Non-Displaced Heart Sounds: Yes: S1, S2 (irreg) Edema: Yes Edema: LLE: 2+ (erythema), RLE: 2+ (erythema) Neurological: Yes: Alert, Oriented - Other Data Labs, Other Data: CBC, BMP 12/24/19 06:00 12/24/19 06:00 INR, PTT INR 1.04 (0.83-1.09) 12/24/19 06:00 Troponin, BNP 12/23/19 12/23/19 12/23/19 16:17 16:17 22:52 Troponin I 0.03 0.03 B-Natriuretic Peptide 2767.1 H Troponin, BNP 12/23/19 12/23/19 12/23/19 16:17 16:17 22:52 Troponin I 0.03 0.03 B-Natriuretic Peptide 2767.1 H Echo: Report Reviewed (EF 605, Mild valve disease) Ejection Fraction %: LVEF > or = 40 % Imaging - Results EKG: Image Reviewed (af 93BPM, Poor R wave progression) Assessment/Plan IMP: Recurrent mechanical falls. LE cellulitis Atrial fibrillation Suspected chronic diastolic CHF with mild exacerbation REC: 1. PT evaluation to assess gait stability to help us in assessing for safety of retirement full AC 2. Cont Toprol for now at current dose, rate controlled. 3. Would use ASA 81mg daily for now. 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 Risks seem to outweigh benefits in this case. Will also obtain PT evaluation of gait stability. 4. Would start Lasix 40mg PO daily 5. Treatment of suspected cellulitis as per primary team Thank you.
[2019-12-24] MEDS: ASPIRIN 81 MG CHEWABLE TABLETS PO SCH (14:02)
[2019-12-24] MEDS ORDERED: ASPIRIN 81 MG CHEWABLE TABLETS ONE (15:22)
--- NOTE | 2019-12-24 17:36 | CON.NEURO ---
Consult - Past Medical History Cardio/Vascular: Yes: HTN Pulmonary: No: Asthma, Bronchitis, Cancer, COPD, O2 Dependent, Pneumonia, Previously Intubated, Pulmonary Embolus, Pulmonary Fibrosis, Sleep Apnea, Other Gastrointestinal: No: Ascites, Cancer, Constipation, Crohn's Disease, Diverticulitis, Diverticulosis, Esophageal Varices, Gastritis, GERD, GI Bleed, Hemorrhoids, Hiatal Hernia, Inflamatory Bowel Disease, Irritable Bowel Disease, Pancreatitis, Peptic Ulcer Disease, Ulcerative Colitis, Other Hepatobiliary: No: Cirrhosis, Cholelithiasis, Cholecystitis, Choledocholithiasis , Hepatitis A, Hepatitis B, Hepatitis C, Other Renal/: No: Renal Failure, Renal Inusuff, BPH, Cancer, Hematuria, Hemodialysis , Neurogenic Bladder, Renal Calculi, UTI, Other Infectious Disease: No: AIDS, C-Diff, Herpes Zoster, HIV, MRSA, STD's, Tuberculosis, VREF, Other Psych: No: Addictions, Anxiety, Bipolar, Depression, Panic, Psychosis, Schizophrenia, Other Musculoskeletal: No: Bursitis, Chronic low back pain, Hemiparesis, Hemiplegia, Osteoarthritis, Paraplegia, Other Rheumatology: No: Fibromyalgia, Gout, Lupus, Rheumatoid Arthritis, Sarcoidosis, Vasculitis, Other ENT: No: Allergic Rhinitis, Sinusitis, Other Endocrine: No: [place]oup's Disease, [place]illa's Disease, Diabetes Insipidus, Diabetes Mellitus, Hyperparathyroidism, Hyperthyroidism, Hypothyroidism, Osteopenia, SIADH, Other Dermatology: No: Basal Cell, Cellulitis, Eczema, Melanoma, Psoriasis, Squamous Cell, Other - Alcohol/Substance Use Hx Alcohol Use: No - Smoking History Smoking history: Unknown if ever smoked Have you smoked in the past 12 months: No - Social History ADL: Independent History of Recent Travel: No Home Medications - Allergies Allergies/Adverse Reactions: Allergies Allergy/AdvReac Type Severity Reaction Status Date / Time No Known Allergies Allergy Unverified 12/23/19 14:36 - Home Medications Home Medications: Ambulatory Orders NK [No Known Home Medication] 11/29/18 Physical Exam-Neuro Vital Signs: Vital Signs Temperature 97.5 F L 12/24/19 14:59 Pulse Rate 73 12/24/19 14:59 Respiratory Rate 20 12/24/19 14:59 Blood Pressure 117/50 L 12/24/19 14:59 O2 Sat by Pulse Oximetry (%) 98 12/24/19 14:59 Labs: CBC, BMP 12/24/19 06:00 12/24/19 06:00 INR, PTT INR 1.04 (0.83-1.09) 12/24/19 06:00 Assessment/Plan CC Fall HPI 89 year old female history of htn, atrial fibrillation, c2 fracture in 2019 , alcohol abuse. Patient fell at home, while trying to get out of bed. She denies any dizziness, or loc. There is no other focal neurological symptoms. She lives alone in [place] with help of [employer].Patient has history of alcohol abus e in past. She is complaining of left hip pain and difficulty lifting left leg. She also have redness and swelling in both feet and leg. PAST MEDICAL HISTORY: as per hpi PAST SURGICAL HISTORY: none Social History: Smoking: denies Alcohol: endorses social use, not daily, unable to quantify Drugs: denies Allergies No Known Allergies Allergy (Unverified 12/23/19 14:36) HOME MEDICATIONS: Home Medications Medication Instructions Recorded NK [No Known Home Medication] 11/29/18 ROS,FH reviewed in chart NEUROLOGICAL EXAMIANTION Alert oriented x 3, neck is supple afebrile eomi, pupil reactive no face asymmetry, sensation on face is normal moving all ext ct head is unremarkable Assessment/Plan 9 year old female history of htn, atrial fibrillation, c2 fracture in 2019, alcohol abuse. SHe came with a fall, which seems to be mechanical, there is no evidence of stroke, syncope or cord compression. Plan: continue current level of care - pt once hip pain issue is resolved - refrain from alcohol, ocntinue thiamine and folic acid - consider short term rehab - No specific recommendation from neurological point of view Thanking you so much Harmeet Logan MD
--- NOTE | 2019-12-24 18:38 | PN ---
Physical Exam: SUBJECTIVE: Patient seen and examined at the bedside. Patient stated that she was feeling better. Did endorse some pain in her bilateral legs. Denied acute complaints of cp, sob, abd pain, n/v/c/d, headaches, dizziness, lightheadedness, numbness, tingling. Notes she is not complaint with all over her medications and does not follow up with physicians regularly. OBJECTIVE: Vital Signs Period Temp Pulse Resp BP Sys/Rosado Pulse Ox Last 24 Hr 97.5 F-98.4 F 67-110 16-20 117-195/50-96 94-99 GENERAL: The patient is awake, alert, and fully oriented, in no acute distress. HEAD: Normal with no signs of trauma. EYES: PERRL, extraocular movements intact, conjunctiva clear. ENT: Oropharynx clear without exudates, moist mucous membranes. NECK: Pulsating neck veins noted. JVD present LUNGS: Bibasilar crackles, no coarse breath sounds or auscultated wheezes. HEART: Normal rate and irregular rhythm, S1, S2 without murmur. ABDOMEN: Soft, obese, nontender, nondistended, normoactive bowel sounds, no guarding, no rebound, no masses. Noted rash underneath the R breast. EXTREMITIES: Poorly palpated pulses. 1+ edema on the legs bilaterally. Feet dry. NEUROLOGICAL: Cranial nerves II through XII grossly intact. Lower extremities 4/5 bilaterally. Straight leg positive on the L. PSYCH: Normal mood, normal affect. SKIN: As above on extremities. Very dry. Erythema noted on the bilateral legs suggestive of venous stasis dermatitis. Diffuse ecchymoses throughout, especially prominent on the posterior side of the R leg. Laboratory Results - last 24 hr 12/23/19 12/23/19 12/23/19 16:17 16:17 22:52 WBC RBC Hgb Hct MCV MCH MCHC RDW Plt Count MPV Absolute Neuts (auto) Neutrophils % Lymphocytes % Monocytes % Eosinophils % Basophils % Nucleated RBC % PT with INR INR PTT (Actin FS) Sodium 140 Potassium 4.3 Chloride 104 Carbon Dioxide 29 Anion Gap 7 L BUN 15.9 Creatinine 1.0 Est GFR (CKD-EPI)AfAm 58.66 Est GFR (CKD-EPI)NonAf 50.61 Random Glucose 86 Calcium 9.2 Phosphorus 3.6 Magnesium 1.7 L Total Bilirubin 1.2 H Direct Bilirubin AST 25 ALT 14 Alkaline Phosphatase 117 Creatine Kinase 251 H Creatine Kinase Index 1.4 CK-MB (CK-2) 3.7 H Troponin I 0.03 0.03 B-Natriuretic Peptide 2767.1 H Total Protein 6.2 L Albumin 3.1 L Vitamin B12 Serum Folate TSH Alcohol, Quantitative < 3 RPR Titer 12/24/19 12/24/19 12/24/19 06:00 06:00 06:00 WBC 4.0 RBC 3.42 L Hgb 11.6 Hct 35.2 MCV 103.0 H MCH 33.9 H MCHC 32.9 RDW 17.7 H Plt Count 110 L MPV 7.9 Absolute Neuts (auto) 2.6 Neutrophils % 64.7 Lymphocytes % 27.2 D Monocytes % 7.1 Eosinophils % 0.3 Basophils % 0.7 Nucleated RBC % 0 PT with INR 12.30 INR 1.04 PTT (Actin FS) 37.3 H Sodium 141 Potassium 3.5 Chloride 105 Carbon Dioxide 27 Anion Gap 9 BUN 15.6 Creatinine 0.9 Est GFR (CKD-EPI)AfAm 66.63 Est GFR (CKD-EPI)NonAf 57.49 Random Glucose 74 Calcium 8.2 L Phosphorus Magnesium Total Bilirubin 1.0 Direct Bilirubin 0.4 H AST 23 ALT 13 Alkaline Phosphatase 103 Creatine Kinase 154 Creatine Kinase Index 1.8 CK-MB (CK-2) 2.8 Troponin I B-Natriuretic Peptide Total Protein 5.6 L Albumin 2.7 L Vitamin B12 655 Serum Folate 19 H TSH 1.37 Alcohol, Quantitative RPR Titer 12/24/19 06:00 WBC RBC Hgb Hct MCV MCH MCHC RDW Plt Count MPV Absolute Neuts (auto) Neutrophils % Lymphocytes % Monocytes % Eosinophils % Basophils % Nucleated RBC % PT with INR INR PTT (Actin FS) Sodium Potassium Chloride Carbon Dioxide Anion Gap BUN Creatinine Est GFR (CKD-EPI)AfAm Est GFR (CKD-EPI)NonAf Random Glucose Calcium Phosphorus Magnesium Total Bilirubin Direct Bilirubin AST ALT Alkaline Phosphatase Creatine Kinase Creatine Kinase Index CK-MB (CK-2) Troponin I B-Natriuretic Peptide Total Protein Albumin Vitamin B12 Serum Folate TSH Alcohol, Quantitative RPR Titer Nonreactive Active Medications Generic Name Dose Route Start Last Admin Trade Name Freq PRN Reason Stop Dose Admin Aspirin 81 mg 12/24/19 13:45 12/24/19 14:02 Asa - PO 81 mg DAILY NADIA Administration Bacitracin 0.9 gm 12/24/19 00:30 12/24/19 11:30 Bacitracin - TP 0.9 gm BID NADIA Administration Folic Acid 1 mg 12/23/19 21:30 12/24/19 10:02 Folic Acid - PO 1 mg DAILY NADIA Administration Furosemide 40 mg 12/24/19 13:25 Lasix - PO DAILY NADIA Lisinopril 10 mg 12/24/19 10:00 12/24/19 10:03 Prinivil PO 10 mg DAILY NADIA Administration Metoprolol Succinate 25 mg 12/24/19 13:16 Toprol Xl - PO DAILY NADIA Multivitamins/Minerals/Vitamin C 1 tab 12/23/19 21:30 12/24/19 10:03 Tab-A-Vit - PO 1 tab DAILY NADIA Administration Thiamine HCl 100 mg 12/23/19 21:30 12/24/19 10:03 Vitamin B1 - PO 100 mg DAILY NADIA Administration ASSESSMENT/PLAN: Lynda Odonnell is an 89 year old female with a past medical history of HTN, prior fall in October 2019 w/ C2 fracture, history of possible alcohol abuse admitted for left hip pain s/p fall. Mechanical fall - CT head neg for acute pathology - XR b/l hips, lumbar XR negative for acute fracture - CT c-spine no longer indicating fracture - CPK elevation resolved with fluid hydration - B12, folate, tsh, RPR, alcohol all within normal limits, U-tox pending - has history of afib and not noted to be on medications for thromboembolic prophylaxis - fall precautions - physical therapy eval Lower extremity swelling - unclear if patient has cardiac history, unlikely cellulitis as there is no warmth, minimal erythema, no WBC, or fevers, continue to monitor - LE U/S with no evidence of DVT - echo as above - podiatry consulted - Lasix 40mg daily L4-L5 spinal stenosis - noted on pelvis CT - neuro consulted, recs appreciated, consider SNF, avoid alcohol A-fib - reported to have during last visit, CHADS-VASC 5 - never started on AC, does not f/u with machine carton marker - cardio consulted, recs appreciated - has history of falls and needs gait assesment before initiation of full AC, for now to be on aspirin but currently held due to hematoma, continue Toprol, will likely be on aspirin by discharge Possible blood on left iliopsoas - holding aspirin - will need repeat CT before discharge to assess progression HTN urgency - starting lisinopril 10mg daily, metoprolol 12.5mg daily - EKG: a-fib. qtc 445. No ST changes - frequent bp checks EtOH abuse - monitor for withdrawals - advise cessation - multivitamin/ folic acid/ thiamine - fall & seizure precautions Hyperbilirubinemia - total bili 1.2, direct 0.4 - RUQ U/S noting fatty infiltration vs hepatocellular disease and hepatic hypoechoic density 2.6x1.8cm cyst - recommending outpatient CT f/u and GI f/u Possible 2cm ovarian cyst - will need outpatient f/u with CHANGE MANAGEMENT - will need repeat CT scan or MRI in 2 months DVT PPX - SCDs FEN - no standing fluids - continue to monitor electrolytes and replete as necessary - sodium controlled diet Dispo - contine to monitor on med surg Visit type - Emergency Visit Emergency Visit: Yes ED Registration Date: 12/23/19 Care time: The patient presented to the Emergency Department on the above date and was hospitalized for further evaluation of their emergent condition. - New Patient This patient is new to me today: Yes Date on this admission: 12/24/19 - Critical Care Critical Care patient: No
[2019-12-24] MEDS ORDERED: METOPROLOL TARTRATE 25 MG TABLET (FP) PO ONE (22:30)
--- NOTE | 2019-12-25 01:15 | PN ---
Progress Note (short form) - Note Progress Note: Patient noted to have condyloma when brought up from ED and patient was being settled. by nurse. Patient planned to see doctor for care later on, has not been able to make appointment.
[2019-12-25] MEDS ORDERED: hydrALAZINE HCL 25 MG TABLET (FP) PO ONE (03:16)
[2019-12-25 06:21] VITALS: BMI 38.4
--- NOTE | 2019-12-25 06:33 | PN ---
Physical Exam: SUBJECTIVE: Patient seen and examined at the bedside. Overnight events noted of hypertension and medications administered. Patient stated that she did not have any acute complaints of cp, sob, abd pain, n/v/c/d, headaches, dizziness, lightheadedness, visual changes, fever, chills, numbness, tingling, focal weakness. OBJECTIVE: Vital Signs Period Temp Pulse Resp BP Sys/Rosado Pulse Ox Last 24 Hr 97.3 F-98.4 F 67-110 16-20 117-205/50-102 94-99 GENERAL: The patient is awake, alert, and fully oriented, in no acute distress. HEAD: Normal with no signs of trauma. EYES: PERRL, extraocular movements intact, conjunctiva clear. ENT: Oropharynx clear without exudates, moist mucous membranes. NECK: JVD present LUNGS: Bibasilar crackles improved, no coarse breath sounds or auscultated wheezes. HEART: Normal rate and irregular rhythm, S1, S2 without murmur. ABDOMEN: Soft, obese, nontender, nondistended, normoactive bowel sounds, no guarding, no rebound, no masses. Noted rash underneath the R breast. EXTREMITIES: Poorly palpated pulses. 1+ edema on the legs bilaterally up to the ankles. Feet dry. NEUROLOGICAL: Cranial nerves II through XII grossly intact. Lower extremities 4/ 5 bilaterally. Straight leg positive on the L. PSYCH: Normal mood, normal affect. SKIN: As above on extremities. Very dry. Erythema noted on the bilateral legs suggestive of venous stasis dermatitis. Diffuse ecchymoses throughout, especially prominent on the posterior side of the R leg. Laboratory Results - last 24 hr 12/24/19 12/24/19 12/24/19 06:00 06:00 06:00 WBC 4.0 RBC 3.42 L Hgb 11.6 Hct 35.2 MCV 103.0 H MCH 33.9 H MCHC 32.9 RDW 17.7 H Plt Count 110 L MPV 7.9 Absolute Neuts (auto) 2.6 Neutrophils % 64.7 Lymphocytes % 27.2 D Monocytes % 7.1 Eosinophils % 0.3 Basophils % 0.7 Nucleated RBC % 0 PT with INR 12.30 INR 1.04 PTT (Actin FS) 37.3 H Sodium 141 Potassium 3.5 Chloride 105 Carbon Dioxide 27 Anion Gap 9 BUN 15.6 Creatinine 0.9 Est GFR (CKD-EPI)AfAm 66.63 Est GFR (CKD-EPI)NonAf 57.49 Random Glucose 74 Calcium 8.2 L Total Bilirubin 1.0 Direct Bilirubin 0.4 H AST 23 ALT 13 Alkaline Phosphatase 103 Creatine Kinase 154 Creatine Kinase Index 1.8 CK-MB (CK-2) 2.8 Total Protein 5.6 L Albumin 2.7 L Vitamin B12 655 Serum Folate 19 H TSH 1.37 RPR Titer 12/24/19 06:00 WBC RBC Hgb Hct MCV MCH MCHC RDW Plt Count MPV Absolute Neuts (auto) Neutrophils % Lymphocytes % Monocytes % Eosinophils % Basophils % Nucleated RBC % PT with INR INR PTT (Actin FS) Sodium Potassium Chloride Carbon Dioxide Anion Gap BUN Creatinine Est GFR (CKD-EPI)AfAm Est GFR (CKD-EPI)NonAf Random Glucose Calcium Total Bilirubin Direct Bilirubin AST ALT Alkaline Phosphatase Creatine Kinase Creatine Kinase Index CK-MB (CK-2) Total Protein Albumin Vitamin B12 Serum Folate TSH RPR Titer Nonreactive Active Medications Generic Name Dose Route Start Last Admin Trade Name Freq PRN Reason Stop Dose Admin Aspirin 81 mg 12/24/19 13:45 12/24/19 14:02 Asa - PO 81 mg DAILY NADIA Administration Bacitracin 0.9 gm 12/24/19 00:30 12/24/19 23:26 Bacitracin - TP 0.9 gm BID NADIA Administration Folic Acid 1 mg 12/23/19 21:30 12/24/19 10:02 Folic Acid - PO 1 mg DAILY NADIA Administration Furosemide 40 mg 12/24/19 13:25 Lasix - PO DAILY NADIA Lisinopril 10 mg 12/24/19 10:00 12/24/19 10:03 Prinivil PO 10 mg DAILY NADIA Administration Metoprolol Succinate 25 mg 12/24/19 13:16 Toprol Xl - PO DAILY NADIA Multivitamins/Minerals/Vitamin C 1 tab 12/23/19 21:30 12/24/19 10:03 Tab-A-Vit - PO 1 tab DAILY NADIA Administration Nystatin 1 applic 12/25/19 10:00 Nystop Powder - TP DAILY NADIA Pneumococcal 13-Valent Conj Vacc 0.5 ml 12/25/19 08:00 Prevnar 13 Syringe - IM 12/25/19 08:01 .ONCE ONE Thiamine HCl 100 mg 12/23/19 21:30 12/24/19 10:03 Vitamin B1 - PO 100 mg DAILY NADIA Administration ECHO Results: The left ventricular size, thickness and function are normal Ejection Fraction = 60%. The left atrium is moderately dilated. The right atrium is moderately dilated. There is trivial mitral valve thickening. There is mild mitral annular calcification. There is mild mitral regurgitation. There is trace tricuspid regurgitation. There is mild aortic valve thickening. Trace aortic regurgitation. ASSESSMENT/PLAN: Lynda Odonnell is an 89 year old female with a past medical history of HTN, prior fall in October 2019 w/ C2 fracture, history of possible alcohol abuse admitted for left hip pain s/p fall. Mechanical fall - CT head neg for acute pathology - XR b/l hips, lumbar XR negative for acute fracture - CT c-spine no longer indicating fracture - CT scan with no evidence of fracture, repeat CT as patient continues to have pain with leg movement - CPK elevation resolved with fluid hydration - B12, folate, tsh, RPR, alcohol all within normal limits, U-tox pending - has history of afib and not noted to be on medications for thromboembolic prophylaxis - fall precautions - physical therapy eval, antalgic gait, ambulated 15ft, requiring minimal assistance of 2, will require SNF Lower extremity swelling - unclear if patient has cardiac history, unlikely cellulitis as there is no warmth, minimal erythema, no WBC, or fevers, continue to monitor - LE U/S with no evidence of DVT - echo as above - podiatry consulted, recs appreciated, can perform nail debridement inpatient or outpatient - Lasix 40mg daily - elevate legs at night L4-L5 spinal stenosis - noted on pelvis CT - neuro consulted, recs appreciated, consider SNF, avoid alcohol A-fib - reported to have during last visit, CHADS-VASC 5 - never started on AC, does not f/u with machine stuffer - cardio consulted, recs appreciated - has history of falls and needs gait assesment before initiation of full AC, for now to be on aspirin but currently held due to hematoma, continue Toprol, will likely be on aspirin by discharge Possible blood on left iliopsoas - holding aspirin - repeat CT scan HTN urgency - lisinopril 10mg daily, metoprolol 50mg daily, continue to monitor for improvement and titrate medications for optimization of BP - EKG: a-fib. qtc 445. No ST changes EtOH abuse - monitor for withdrawals - advise cessation - multivitamin/ folic acid/ thiamine - fall & seizure precautions Hyperbilirubinemia - total bili 1.2, direct 0.4 - RUQ U/S noting fatty infiltration vs hepatocellular disease and hepatic hypoechoic density 2.6x1.8cm cyst - recommending outpatient CT f/u and GI f/u Possible 2cm ovarian cyst - will need outpatient f/u with SEARCH ENGINEER - will need repeat CT scan or MRI in 2 months DVT PPX - SCDs FEN - no standing fluids - continue to monitor electrolytes and replete as necessary - sodium controlled diet Dispo - continue to monitor on med surg - patient amenable to SNF for strength and gait training Visit type - Emergency Visit Emergency Visit: Yes ED Registration Date: 12/23/19 Care time: The patient presented to the Emergency Department on the above date and was hospitalized for further evaluation of their emergent condition. - New Patient This patient is new to me today: No - Critical Care Critical Care patient: No
[2019-12-25 07:47] LABS: HEMOGLOBIN 12.1 GM/dL (10.7-15.3); MCH 34.2 pg (25.7-33.7); MCHC 33.5 g/dl (32.0-36.0); MEAN CELL VOLUME 101.9 fl (80-96); MEAN PLT VOLUME 8.4 fl (7.5-11.1); PLATELET COUNT 114 K/MM3 (134-434); RBC 3.53 M/mm3 (3.60-5.2); RDW 17.1 % (11.6-15.6); WHITE BLOOD COUNT 5.5 K/mm3 (4.0-10.0)
[2019-12-25 08:19] LABS: BLOOD UREA NITROGEN 13.8 mg/dL (7-18); CALCIUM 7.9 mg/dL (8.5-10.1); CREATININE 0.8 mg/dL (0.55-1.3); MAGNESIUM 1.6 mg/dL (1.8-2.4); POTASSIUM 3.4 mmol/L (3.5-5.1)
--- NOTE | 2019-12-25 08:36 | PN ---
Progress Note (short form) - Note Progress Note: 89 year old female history of htn, atrial fibrillation, c2 fracture in 2020, alcohol abuse. Patient fell at home, while trying to get out of bed. She denies any dizziness, or loc. There is no other focal neurological symptoms. She [place] with help of DISTRIBUTION SALES MANAGER.Patient has history of alcohol abus e in past. She is complaining of left hip pain and difficulty lifting left leg. She also have redness and swelling in both feet and leg. She is waiting to be seen by clinical pharmacy specialist, there is no new symptoms overnight and her pain in leg is feeling better. She is sitting in bed eating breakfast, spoke to nursing and resident, there is no new issue. NEUROLOGICAL EXAMIANTION Alert oriented x 3, neck is supple afebrile eomi, pupil reactive no face asymmetry, sensation on face is normal moving all ext ct head is unremarkable Assessment/Plan 9 year old female history of htn, atrial fibrillation, c2 fracture in 2020, alcohol abuse. SHe came with a fall, which seems to be mechanical, there is no evidence of stroke, syncope or cord compression. She is doing better. there has not been any significant back pain and ct findings of spinal stenosis is incidental Plan: continue current level of care - pt once hip pain issue is resolved - refrain from alcohol, Continue thiamine and folic acid - consider short term rehab Thanking you so much Harmeet Logan MD
--- NOTE | 2019-12-25 09:01 | PN ---
Teaching Attending Note Name of Resident: Corky Mejia ATTENDING PHYSICIAN STATEMENT I saw and evaluated the patient. I reviewed the resident's note and discussed the case with the resident. I agree with the resident's findings and plan as documented. SUBJECTIVE: Patient is feeling better with no acute distress. Vital Signs Temperature 98.1 F 12/25/19 06:00 Pulse Rate 82 12/25/19 06:00 Respiratory Rate 20 12/25/19 06:00 Blood Pressure 178/84 H 12/25/19 06:00 O2 Sat by Pulse Oximetry (%) 94 L 12/24/19 21:05 GENERAL: The patient is awake, alert, and fully oriented, in no acute distress. HEAD: Normal with no signs of trauma. EYES: PERRL, extraocular movements intact, sclera anicteric, conjunctiva clear. ENT: Ears normal, oropharynx clear without exudates, moist mucous membranes. NECK: Trachea midline, full range of motion, supple. LUNGS: decreased BS BL otherwise CTA BL , no wheezes, no crackles, no accessory muscle use. HEART: irregularly-irregular rate is controlled, S1, S2 positive, LUKASZ 2/6 , no rub or gallop. ABDOMEN: Soft, NT, ND, normoactive bowel sounds, no guarding, no rebound, no hepatosplenomegaly, no masses. EXTREMITIES: 2+ pulses, warm, well-perfused, no edema. NEUROLOGICAL: Cranial nerves II through XII grossly intact. Normal speech, gait not observed. PSYCH: Normal mood, normal affect. SKIN: Warm, dry, normal turgor, no rashes or lesions noted CBCD WBC 5.5 K/mm3 (4.0-10.0) 12/25/19 07:00 RBC 3.53 M/mm3 (3.60-5.2) L 12/25/19 07:00 Hgb 12.1 GM/dL (10.7-15.3) 12/25/19 07:00 Hct 36.0 % (32.4-45.2) 12/25/19 07:00 MCV 101.9 fl (80-96) H 12/25/19 07:00 MCHC 33.5 g/dl (32.0-36.0) 12/25/19 07:00 RDW 17.1 % (11.6-15.6) H 12/25/19 07:00 Plt Count 114 K/MM3 (134-434) L 12/25/19 07:00 MPV 8.4 fl (7.5-11.1) 12/25/19 07:00 CMP Sodium 140 mmol/L (136-145) 12/25/19 07:00 Potassium 3.4 mmol/L (3.5-5.1) L 12/25/19 07:00 Chloride 105 mmol/L (98-107) 12/25/19 07:00 Carbon Dioxide 28 mmol/L (21-32) 12/25/19 07:00 Anion Gap 7 MMOL/L (8-16) L 12/25/19 07:00 BUN 13.8 mg/dL (7-18) 12/25/19 07:00 Creatinine 0.8 mg/dL (0.55-1.3) 12/25/19 07:00 Random Glucose 75 mg/dL (74-106) 12/25/19 07:00 Calcium 7.9 mg/dL (8.5-10.1) L 12/25/19 07:00 Total Bilirubin 1.0 mg/dL (0.2-1) 12/24/19 06:00 AST 23 U/L (15-37) 12/24/19 06:00 ALT 13 U/L (13-61) 12/24/19 06:00 Alkaline Phosphatase 103 U/L (45-117) 12/24/19 06:00 Total Protein 5.6 g/dl (6.4-8.2) L 12/24/19 06:00 Albumin 2.7 g/dl (3.4-5.0) L 12/24/19 06:00 CARDIAC ENZYMES Creatine Kinase 154 U/L (26-192) 12/24/19 06:00 Troponin I 0.03 ng/ml (0.00-0.05) 12/23/19 22:52 Current Medications Generic Name Dose Route Start Last Admin Trade Name Taylor PRN Reason Stop Dose Admin Aspirin 81 mg 12/24/19 13:45 12/24/19 14:02 Asa - PO 81 mg DAILY NADIA Administration Bacitracin 0.9 gm 12/24/19 00:30 12/24/19 23:26 Bacitracin - TP 0.9 gm BID NADIA Administration Folic Acid 1 mg 12/23/19 21:30 12/24/19 10:02 Folic Acid - PO 1 mg DAILY NADIA Administration Furosemide 40 mg 12/24/19 13:25 Lasix - PO DAILY NADIA Lisinopril 10 mg 12/24/19 10:00 12/24/19 10:03 Prinivil PO 10 mg DAILY NADIA Administration Metoprolol Succinate 50 mg 12/25/19 07:56 Toprol Xl - PO DAILY NADIA Multivitamins/Minerals/Vitamin C 1 tab 12/23/19 21:30 12/24/19 10:03 Tab-A-Vit - PO 1 tab DAILY NADIA Administration Nystatin 1 applic 12/25/19 10:00 Nystop Powder - TP DAILY NADIA Pneumococcal 13-Valent Conj Vacc 0.5 ml 12/25/19 10:00 Prevnar 13 Syringe - IM 12/25/19 10:01 .ONCE ONE Thiamine HCl 100 mg 12/23/19 21:30 12/24/19 10:03 Vitamin B1 - PO 100 mg DAILY NADIA Administration Home Medications Medication Instructions Recorded NK [No Known Home Medication] 11/29/18 CT abdomen and pelvis: no pelvis or left hip fracture is seen. Ileopsoas muscle is larger than the left and focal slightly increased internal density possible representing blood. no discrete hematoma is visualized. 2cm left ovarian cyst, [address] or MRI is suggested Assessment and plan: Patient is an 89yof with Pmhx of A-fib.( not on AC) C 2 Fx, recurrent falls, ETOH use, and HTN who presented with a fall few days ago. # s/p Fall: due to probably muscle weakness, deconditioning, or imbalance . B12 , folate, TSH noted trauma w/u did not show any Fx, but showed possible blood density in L iliopsoas muscle. will repeat the left hip CT to r/o fx vs extensiveness of her bleed. Dc heparin gtt, PT eval # Acute Diastolic heart failure: continue oral lasix 40 mg daily, Echo reviewed. # H/o A fib: CHADS2-VASC is 5; high risk for stroke. but the risk for bleeding given her frequent falls, and non compliance. Also , she already has CT evidence of possible , blood in L iliopsoas muscle , off heparin gtt now, will monitor H/H, on Toprol XL 50mg daily - hold off starting heparin due to the bleeding in L iliopsoas muscle , possible hematoma - Aspirin use will be probably safe in the near future if repeat imaging in few days shows stable finding. # HTN urgency : cont metoprolol, lisinopril # Possible iliopsoas bleed on CT scan: will repeat CT scan in few days, hold off any antiplatelet and any AC # Incidental liver lesion/cyst. need out pt monitoring and imaging ( triple face CT or MRI ) # L ovarian cyst, 2 cm. Out pt follow up # Spinal stenosis at level or L4-L5. out pt f.u with neuro sx # fungal infection under R breast: use topical nystatin powder. DVT Px: SCDs for now.
[2019-12-25] MEDS: FUROSEMIDE 20 MG TABLET (FP) PO SCH (09:26)
[2019-12-25] MEDS: THIAMINE HCL 100 MG TABLET (FP) PO SCH (09:26)
[2019-12-25] MEDS: FOLIC ACID 1 MG TABLET (FP) PO SCH (09:26)
[2019-12-25] MEDS: LISINOPRIL 10 MG TABLET (FP) PO SCH (09:26)
[2019-12-25] MEDS: MULTIVITAMINS (DAILY MVI) TABLET (FP) PO SCH (09:26)
[2019-12-25] MEDS: ASPIRIN 81 MG CHEWABLE TABLETS PO SCH (09:26)
[2019-12-25] MEDS: BACITRACIN 0.9 GM PACKET TP SCH ×2 (09:27→22:13)
[2019-12-25] MEDS ORDERED: MAGNESIUM SULF 50% (8.12 MEQ/2 ML-1 GM VIAL) IVPB ONE (09:30)
[2019-12-25] MEDS ORDERED: POTASSIUM CHLORIDE TABS 20 MEQ TABLET.ER (FP) PO ONE (09:45)
[2019-12-25] MEDS ORDERED: ASPIRIN 81 MG CHEWABLE TABLETS PO SCH (10:00)
[2019-12-25] MEDS ORDERED: PNEUMOC 13-VAL CONJ-DIP CRM/PF 0.5 ML DISP.SYRIN IM ONE (10:00)
--- NOTE | 2019-12-25 11:05 | PN ---
Progress Note (short form) - Note Progress Note: s: no chest pain, palps, dizziness, dyspnea Current Medications Aspirin (Asa -) 81 mg PO DAILY [facility] Last Admin: 12/25/19 09:26 Dose: 81 mg Bacitracin (Bacitracin -) 0.9 gm TP BID [facility] Last Admin: 12/25/19 09:27 Dose: 0.9 gm Folic Acid (Folic Acid -) 1 mg PO DAILY [facility] Last Admin: 12/25/19 09:26 Dose: 1 mg Furosemide (Lasix -) 40 mg PO DAILY [facility] Last Admin: 12/25/19 09:26 Dose: 40 mg Lisinopril (Prinivil) 10 mg PO DAILY [facility] Last Admin: 12/25/19 09:26 Dose: 10 mg Metoprolol Succinate (Toprol Xl -) 50 mg PO DAILY [facility] Last Admin: 12/25/19 09: Dose: 50 mg Multivitamins/Minerals/Vitamin C (Tab-A-Vit -) 1 tab PO DAILY [facility] Last Admin: 12/25/19 09:26 Dose: 1 tab Nystatin (Nystop Powder -) 1 applic TP DAILY [facility] Thiamine HCl (Vitamin B1 -) 100 mg PO DAILY [facility] Last Admin: 12/25/19 09:26 Dose: 100 mg Vital Signs Period Temp Pulse Resp BP Sys/Rosado Pulse Ox Last 24 Hr 97.3 F-98.4 F 73-98 18-20 117-205/50-102 94-98 Constitutional: Yes: No Distress, Calm Eyes: Yes: Conjunctiva Clear Respiratory: Yes: CTA Bilaterally Gastrointestinal: Yes: Soft (NT) Cardiovascular: Yes: Regular Rate and Rhythm JVD: No Carotid Bruit: No PMI: Non-Displaced Heart Sounds: Yes: S1, S2 (irreg) Edema: Yes Edema: LLE: 2+ (erythema), RLE: 2+ (erythema) Neurological: Yes: Alert, Oriented Echo: Report Reviewed (EF 605, Mild valve disease) Ejection Fraction %: LVEF > or = 40 % Imaging - Results EKG: Image Reviewed (af 93BPM, Poor R wave progression) tele: afib rate controlled Assessment/Plan IMP: Recurrent mechanical falls. LE cellulitis Atrial fibrillation Suspected chronic diastolic CHF with mild exacerbation REC: 1. PT evaluation to assess gait stability to help us in assessing for safety of intermediate manager full AC 2. rate controlled, continue toprol 3. Cont ASA 81mg daily for now. Based on her hx of ETOH and recurrent falls ( one of which resulted in a C2 fracture) it does not seem like she is a candidate for intermediate manager full AC. Risks seem to outweigh benefits in this case. PT evaluation for gait stability. 4. Cont Lasix 40mg PO daily 5. Treatment of suspected cellulitis as per primary team
--- NOTE | 2019-12-25 11:29 | CONSULT ---
Consult - text type - Consultation Consultation Note: Podiatry Consultation: 89 year old female seen/evaluated at bedside NAD. Patient presented to hospital for admission s/p fall. S/p C2 fx in the past about 1 month ago. Does have history of falls. Has history of Afib not on AC, found to be in RVR on admission. She complains of painful digital nail deformities as well. Denies F/V/N/C/SOB/CP. Afebrile. PMHx: A fib, not on AC, C 2 Fx, recurrent falls, ETOH use, and HTN, venous stasis Meds: noted ALL: NKMA LUDIVINA: vascular: pedal pulses 1/4, TG wnl, CFT brisk to toes bilaterally. There are no ischemic changes to the foot bilaterally. The feet are warm and well perfused. There is lower leg edema, fixed erythema and signs of venous stasis changes bilaterally. There are no ulcers, no signs of infection. neuro: epicritic and protective sensations grossly intact bilaterally. There are no focal motor or sensory deficits bilaterally. derm: nails are elongated, overgrown, discolored, brittle, thickened with subungual debris, tender to palpation x 10. There are no nail bed ulcers, no signs of infection Imp: 89 year old female with venous stasis, edema, onychomycosis x 10 1. Encouraged leg elevation for edema and venous stasis 2. Patient going for CT scan right now and as such will hold off on nail debridement 3. Nail debridement can be done as outpatient as well. No acute intervention required. Thank you for the courtesy of this consultation. Vikash Bosch DPM
[2019-12-25] MEDS ORDERED: MELATONIN 5 MG TABLETS PO PRN (13:15)
[2019-12-25] MEDS ORDERED: LISINOPRIL 10 MG TABLET (FP) PO ONE (16:03)
[2019-12-25] MEDS: NYSTATIN POWDER 100,000 UNITS/GM - 15 GM TOPICAL POWDER TP SCH (16:43)
[2019-12-25] MEDS ORDERED: metoPROLOL SUCCINATE 25 MG TAB.SR.24H (FP) PO ONE (22:02)
[2019-12-25] MEDS: MELATONIN 1 MG TABLET PO SCH (22:13)
[2019-12-26 07:12] LABS: HEMATOCRIT 33.8 % (32.4-45.2); HEMOGLOBIN 11.4 GM/dL (10.7-15.3); MCH 34.2 pg (25.7-33.7); MCHC 33.6 g/dl (32.0-36.0); MEAN CELL VOLUME 101.8 fl (80-96); MEAN PLT VOLUME 8.3 fl (7.5-11.1); PLATELET COUNT 107 K/MM3 (134-434); RBC 3.32 M/mm3 (3.60-5.2); RDW 17.1 % (11.6-15.6)
[2019-12-26 07:49] LABS: BLOOD UREA NITROGEN 14.2 mg/dL (7-18); CALCIUM 8.5 mg/dL (8.5-10.1); CREATININE 0.9 mg/dL (0.55-1.3); PHOSPHOROUS 2.9 mg/dL (2.5-4.9); POTASSIUM 3.6 mmol/L (3.5-5.1)
[2019-12-26] MEDS ORDERED: PT OWN MED DRAWER 7, Y5N ONE ×2 (09:48→11:02)
[2019-12-26] MEDS: FUROSEMIDE 20 MG TABLET (FP) PO SCH (10:05)
[2019-12-26] MEDS: MULTIVITAMINS (DAILY MVI) TABLET (FP) PO SCH (10:05)
[2019-12-26] MEDS: FOLIC ACID 1 MG TABLET (FP) PO SCH (10:05)
[2019-12-26] MEDS: ASPIRIN 81 MG CHEWABLE TABLETS PO SCH (10:05)
[2019-12-26] MEDS: THIAMINE HCL 100 MG TABLET (FP) PO SCH (10:05)
[2019-12-26] MEDS: LISINOPRIL 10 MG TABLET (FP) PO SCH ×2 (10:05→22:30)
[2019-12-26] MEDS: NYSTATIN POWDER 100,000 UNITS/GM - 15 GM TOPICAL POWDER TP SCH (10:06)
[2019-12-26] MEDS: BACITRACIN 0.9 GM PACKET TP SCH ×2 (10:11→22:30)
--- NOTE | 2019-12-26 10:42 | PN ---
Progress Note (short form) - Note Progress Note: s: no chest pain, palps, dizziness, dyspnea Current Medications Generic Name Dose Route Start Last Admin Trade Name Taylor PRN Reason Stop Dose Admin Aspirin 81 mg 12/24/19 13:45 12/26/19 10:05 Asa - PO 81 mg DAILY NADIA Administration Bacitracin 0.9 gm 12/24/19 00:30 12/26/19 10:11 Bacitracin - TP 0.9 gm BID NADIA Administration Folic Acid 1 mg 12/23/19 21:30 12/26/19 10:05 Folic Acid - PO 1 mg DAILY NADIA Administration Furosemide 40 mg 12/24/19 13:25 12/26/19 10:05 Lasix - PO 40 mg DAILY NADIA Administration Lisinopril 10 mg 12/26/19 10:00 12/26/19 10:05 Prinivil PO 10 mg BID NADIA Administration Melatonin 3 mg 12/25/19 22:00 12/25/19 22:13 Melatonin PO 3 mg HS NADIA Administration Metoprolol Succinate 50 mg 12/25/19 07:56 12/26/19 10:05 Toprol Xl - PO 50 mg DAILY NADIA Administration Multivitamins/Minerals/Vitamin C 1 tab 12/23/19 21:30 12/26/19 10:05 Tab-A-Vit - PO 1 tab DAILY NADIA Administration Nystatin 1 applic 12/25/19 10:00 12/26/19 10:06 Nystop Powder - TP 1 applic DAILY NADIA Administration Thiamine HCl 100 mg 12/23/19 21:30 12/26/19 10:05 Vitamin B1 - PO 100 mg DAILY NADIA Administration Vital Signs Period Temp Pulse Resp BP Sys/Rosado Pulse Ox Last 24 Hr 97.3 F-99.3 F 67-88 20-20 134-187/66-114 96 Constitutional: Yes: No Distress, Calm Eyes: Yes: Conjunctiva Clear Respiratory: Yes: CTA Bilaterally Gastrointestinal: Yes: Soft (NT) Cardiovascular: Yes: Regular Rate and Rhythm JVD: No Carotid Bruit: No PMI: Non-Displaced Heart Sounds: Yes: S1, S2 (irreg) Edema: Yes Edema: LLE: 1+ (erythema), RLE: 1+ (erythema) Neurological: Yes: Alert, Oriented CBC, BMP 12/26/19 06:05 12/26/19 06:05 Echo: Report Reviewed (EF 605, Mild valve disease) Ejection Fraction %: LVEF > or = 40 % Imaging - Results EKG: Image Reviewed (af 93BPM, Poor R wave progression) tele: afib rate controlled Assessment/Plan IMP: Recurrent mechanical falls. LE cellulitis Atrial fibrillation Suspected chronic diastolic CHF with mild exacerbation REC: 1. PT evaluation to assess gait stability to help us in assessing for safety of terminal gauger full AC 2. rate controlled, continue toprol 3. Cont ASA 81mg daily for now. Based on her hx of ETOH and recurrent falls ( one of which resulted in a C2 fracture) it does not seem like she is a candidate for terminal gauger full AC. Risks seem to outweigh benefits in this case. PT evaluation for gait stability. 4. Cont Lasix 40mg PO daily, echo here unremarkable. 5. Treatment of suspected cellulitis as per primary team
[2019-12-26 15:31] LABS: PH,URINE 6.5 (5.0-8.0); URINE APPEARANCE CLEAR; URINE BILIRUBIN NEGATIVE (NEGATIVE); URINE COLOR YELLOW; URINE GLUCOSE (UA) NEGATIVE (NEGATIVE); URINE KETONE NEGATIVE (NEGATIVE); URINE LEUK ESTERASE NEGATIVE (NEGATIVE); URINE NITRITE NEGATIVE (NEGATIVE); URINE PROTEIN NEGATIVE (NEGATIVE); URINE UROBILINOGEN 0.2 mg/dL (0.2-1.0)
[2019-12-26 15:40] LABS: COCAINE, UR NEGATIVE ng/ml (CUTOFF=300); METHADONE, UR NEGATIVE ng/ml (CUTOFF=300); OPIATES, URI NEGATIVE ng/ml (CUTOFF=300); PHENCYCLIDINE,URINE NEGATIVE ng/ml (CUTOFF=25); URINE AMPHETAMINES NEGATIVE ng/ml (CUTOFF=500); URINE BARBITURATES NEGATIVE ng/ml (CUTOFF=200); URINE BENZODIAZEPINES NEGATIVE ng/ml (CUTOFF=200)
--- NOTE | 2019-12-26 15:41 | PN ---
Progress Note (short form) - Note Progress Note: 89 year old female history of htn, atrial fibrillation, c2 fracture in 2019, alcohol abuse. Patient fell at home, while trying to get out of bed. She denies any dizziness, or loc. There is no other focal neurological symptoms. [facility] [employer].Patient has history of alcohol abus e in past. She is complaining of left hip pain and difficulty lifting left leg. No new complain, patient is feeling better, no more dizziness or fall. NEUROLOGICAL EXAMIANTION Alert oriented x 3, neck is supple afebrile eomi, pupil reactive no face asymmetry, sensation on face is normal moving all ext ct head is unremarkable Assessment/Plan 9 year old female history of htn, atrial fibrillation, c2 fracture in 2019, alcohol abuse. SHe came with a fall, which seems to be mechanical, there is no evidence of stroke, syncope or cord compression. She is doing better. there has not been any significant back pain and ct findings of spinal stenosis is incidental Plan: continue current level of care - patient going to short term rehab, follow up outpatient. Thanking you so much Harmeet Logan MD
--- NOTE | 2019-12-26 16:21 | PN ---
Teaching Attending Note Name of Resident: Corky Mejia ATTENDING PHYSICIAN STATEMENT I saw and evaluated the patient. I reviewed the resident's note and discussed the case with the resident. I agree with the resident's findings and plan as documented. SUBJECTIVE: OBJECTIVE: Vital Signs Temperature 98.4 F 12/26/19 14:00 Pulse Rate 87 12/26/19 14:00 Respiratory Rate 18 12/26/19 09:00 Blood Pressure 144/75 12/26/19 14:00 O2 Sat by Pulse Oximetry (%) 96 12/26/19 09:00 GENERAL: The patient is awake, alert, and fully oriented, in no acute distress. HEAD: Normal with no signs of trauma. EYES: PERRL, extraocular movements intact, sclera anicteric, conjunctiva clear. ENT: Ears normal, oropharynx clear without exudates, moist mucous membranes. NECK: Trachea midline, full range of motion, supple. LUNGS: decreased BS BL otherwise CTA BL , no wheezes, no crackles, no accessory muscle use. HEART: irregularly-irregular rate is controlled, S1, S2 positive, LUKASZ 2/6 , no rub or gallop. ABDOMEN: Soft, NT, ND, normoactive bowel sounds, no guarding, no rebound, no hepatosplenomegaly, no masses. EXTREMITIES: 2+ pulses, warm, well-perfused, no edema. NEUROLOGICAL: Cranial nerves II through XII grossly intact. Normal speech, gait not observed. PSYCH: Normal mood, normal affect. SKIN: Warm, dry, normal turgor, no rashes or lesions noted CBCD WBC 5.0 K/mm3 (4.0-10.0) 12/26/19 06:05 RBC 3.32 M/mm3 (3.60-5.2) L 12/26/19 06:05 Hgb 11.4 GM/dL (10.7-15.3) 12/26/19 06:05 Hct 33.8 % (32.4-45.2) 12/26/19 06:05 MCV 101.8 fl (80-96) H 12/26/19 06:05 MCHC 33.6 g/dl (32.0-36.0) 12/26/19 06:05 RDW 17.1 % (11.6-15.6) H 12/26/19 06:05 Plt Count 107 K/MM3 (134-434) L 12/26/19 06:05 MPV 8.3 fl (7.5-11.1) 12/26/19 06:05 CMP Sodium 140 mmol/L (136-145) 12/26/19 06:05 Potassium 3.6 mmol/L (3.5-5.1) 12/26/19 06:05 Chloride 104 mmol/L (98-107) 12/26/19 06:05 Carbon Dioxide 29 mmol/L (21-32) 12/26/19 06:05 Anion Gap 7 MMOL/L (8-16) L 12/26/19 06:05 BUN 14.2 mg/dL (7-18) 12/26/19 06:05 Creatinine 0.9 mg/dL (0.55-1.3) 12/26/19 06:05 Random Glucose 81 mg/dL (74-106) 12/26/19 06:05 Calcium 8.5 mg/dL (8.5-10.1) 12/26/19 06:05 Total Bilirubin 1.0 mg/dL (0.2-1) 12/24/19 06:00 AST 23 U/L (15-37) 12/24/19 06:00 ALT 13 U/L (13-61) 12/24/19 06:00 Alkaline Phosphatase 103 U/L (45-117) 12/24/19 06:00 Total Protein 5.6 g/dl (6.4-8.2) L 12/24/19 06:00 Albumin 2.7 g/dl (3.4-5.0) L 12/24/19 06:00 CARDIAC ENZYMES Creatine Kinase 154 U/L (26-192) 12/24/19 06:00 Troponin I 0.03 ng/ml (0.00-0.05) 12/23/19 22:52 Current Medications Generic Name Dose Route Start Last Admin Trade Name Omidq PRN Reason Stop Dose Admin Aspirin 81 mg 12/24/19 13:45 12/26/19 10:05 Asa - PO 81 mg DAILY NADIA Administration Bacitracin 0.9 gm 12/24/19 00:30 12/26/19 10:11 Bacitracin - TP 0.9 gm BID NADIA Administration Folic Acid 1 mg 12/23/19 21:30 12/26/19 10:05 Folic Acid - PO 1 mg DAILY NADIA Administration Furosemide 40 mg 12/24/19 13:25 12/26/19 10:05 Lasix - PO 40 mg DAILY NADIA Administration Lisinopril 10 mg 12/26/19 10:00 12/26/19 10:05 Prinivil PO 10 mg BID NADIA Administration Melatonin 3 mg 12/25/19 22:00 12/25/19 22:13 Melatonin PO 3 mg HS NADIA Administration Metoprolol Succinate 50 mg 12/25/19 07:56 12/26/19 10:05 Toprol Xl - PO 50 mg DAILY NADIA Administration Multivitamins/Minerals/Vitamin C 1 tab 12/23/19 21:30 12/26/19 10:05 Tab-A-Vit - PO 1 tab DAILY NADIA Administration Nystatin 1 applic 12/25/19 10:00 12/26/19 10:06 Nystop Powder - TP 1 applic DAILY NADIA Administration Thiamine HCl 100 mg 12/23/19 21:30 12/26/19 10:05 Vitamin B1 - PO 100 mg DAILY NADIA Administration Home Medications Medication Instructions Recorded Aspirin [ASA -] 81 mg PO DAILY tab.chew 12/26/19 Folic Acid - 1 mg PO DAILY tablet 12/26/19 Furosemide [Lasix -] 40 mg PO DAILY tablet 12/26/19 Lisinopril [Prinivil] 10 mg PO BID tablet 12/26/19 Metoprolol Succinate [Toprol XL -] 50 mg PO DAILY tab.sr.24h 12/26/19 Multivitamins [Multivit ([facility] 1 tab PO DAILY tab 12/26/19 Formulary)] Nystatin Powder [Nystop Powder -] 1 applic TP DAILY applic 12/26/19 Thiamine HCl [Vitamin B1 -] 100 mg PO DAILY tablet 12/26/19 CT abdomen and pelvis: no pelvis or left hip fracture is seen. Ileopsoas muscle is larger than the left and focal slightly increased internal density possible representing blood. no discrete hematoma is visualized. 2cm left ovarian cyst, [address] or MRI is suggested Assessment and plan: Patient is an 89yof with Pmhx of A-fib.( not on AC) C 2 Fx, recurrent falls, ETOH use, and HTN who presented with a fall few days ago. # s/p Fall: due to probably muscle weakness, deconditioning, or imbalance . B12 , folate, TSH noted trauma w/u did not show any Fx, but showed possible blood density in L iliopsoas muscle. will repeat the left hip CT to r/o fx vs extensiveness of her bleed. Dc heparin gtt, PT eval , if w/u is negative will dc the patient to rehab. # Acute Diastolic heart failure: continue oral lasix 40 mg daily, Echo reviewed. # H/o A fib: CHADS2-VASC is 5; high risk for stroke. but the risk for bleeding given her frequent falls, and non compliance. Also , she already has CT evidence of possible , blood in L iliopsoas muscle , off heparin gtt now, will monitor H/H, on Toprol XL 50mg daily - hold off starting heparin due to the bleeding in L iliopsoas muscle , possible hematoma - Aspirin use will be probably safe in the near future if repeat imaging in few days shows stable finding. # HTN urgency : cont metoprolol, lisinopril # Possible iliopsoas bleed on CT scan: will repeat CT scan in few days, hold off any antiplatelet and any AC # Incidental liver lesion/cyst. need out pt monitoring and imaging ( triple face CT or MRI ) # L ovarian cyst, 2 cm. Out pt follow up # Spinal stenosis at level or L4-L5. out pt f.u with neuro sx # fungal infection under R breast: use topical nystatin powder. DVT Px: SCDs for now.
--- NOTE | 2019-12-26 18:41 | PN ---
Physical Exam: SUBJECTIVE: Patient seen and examined at the bedside. Stated she was feeling well. Stated she noted improvement in her legs. Said she felt weaker when she walker and was eager to go to rehab. Denied cp, sob, abd pain, n/v/c/d, fever, chills, headaches, dizziness, lightheadedness, focal weakness, numbness/tingling , dysuria. OBJECTIVE: Vital Signs Period Temp Pulse Resp BP Sys/Rosado Pulse Ox Last 24 Hr 97.3 F-99.3 F 67-88 18-20 134-175/66-96 96-96 GENERAL: The patient is awake, alert, and fully oriented, in no acute distress. HEAD: Normal with no signs of trauma. EYES: PERRL, extraocular movements intact, conjunctiva clear. ENT: Oropharynx clear without exudates, moist mucous membranes. LUNGS: Bibasilar crackles improved, no coarse breath sounds or auscultated wheezes. HEART: Normal rate and irregular rhythm, S1, S2 without murmur. ABDOMEN: Soft, obese, nontender, nondistended, normoactive bowel sounds, no guarding, no rebound, no masses. Noted rash underneath the R breast. EXTREMITIES: Poorly palpated pulses. 1+ edema on the legs bilaterally up to the ankles. Feet dry. NEUROLOGICAL: Cranial nerves II through XII grossly intact. Lower extremities 4/ 5 bilaterally. PSYCH: Normal mood, normal affect. SKIN: As above on extremities. Very dry. Erythema noted on the bilateral legs suggestive of venous stasis dermatitis. Diffuse ecchymoses throughout, especially prominent on the posterior side of the R leg. Laboratory Results - last 24 hr 12/26/19 12/26/19 12/26/19 06:05 06:05 15:20 WBC 5.0 RBC 3.32 L Hgb 11.4 Hct 33.8 MCV 101.8 H MCH 34.2 H MCHC 33.6 RDW 17.1 H Plt Count 107 L MPV 8.3 Sodium 140 Potassium 3.6 Chloride 104 Carbon Dioxide 29 Anion Gap 7 L BUN 14.2 Creatinine 0.9 Est GFR (CKD-EPI)AfAm 66.63 Est GFR (CKD-EPI)NonAf 57.49 Random Glucose 81 Calcium 8.5 Phosphorus 2.9 Magnesium 2.0 Urine Color Urine Appearance Urine pH Ur Specific [place] Urine Protein Urine Glucose (UA) Urine Ketones Urine Blood Urine Nitrite Urine Bilirubin Urine Urobilinogen Ur Leukocyte Esterase Opiates Screen Negative Methadone Screen Negative Barbiturate Screen Negative Phencyclidine Screen Negative Ur Amphetamines Screen Negative MDMA (Ecstasy) Screen Negative Benzodiazepines Screen Negative Cocaine Screen Negative U Marijuana (THC) Screen Negative 12/26/19 15:20 WBC RBC Hgb Hct MCV MCH MCHC RDW Plt Count MPV Sodium Potassium Chloride Carbon Dioxide Anion Gap BUN Creatinine Est GFR (CKD-EPI)AfAm Est GFR (CKD-EPI)NonAf Random Glucose Calcium Phosphorus Magnesium Urine Color Yellow Urine Appearance Clear Urine pH 6.5 Ur Specific [place] 1.015 Urine Protein Negative Urine Glucose (UA) Negative Urine Ketones Negative Urine Blood 3+ H Urine Nitrite Negative Urine Bilirubin Negative Urine Urobilinogen 0.2 Ur Leukocyte Esterase Negative Opiates Screen Methadone Screen Barbiturate Screen Phencyclidine Screen Ur Amphetamines Screen MDMA (Ecstasy) Screen Benzodiazepines Screen Cocaine Screen U Marijuana (THC) Screen Active Medications Generic Name Dose Route Start Last Admin Trade Name Omidq PRN Reason Stop Dose Admin Aspirin 81 mg 12/24/19 13:45 12/26/19 10:05 Asa - PO 81 mg DAILY NADIA Administration Bacitracin 0.9 gm 12/24/19 00:30 12/26/19 10:11 Bacitracin - TP 0.9 gm BID NADIA Administration Folic Acid 1 mg 12/23/19 21:30 12/26/19 10:05 Folic Acid - PO 1 mg DAILY NADIA Administration Furosemide 40 mg 12/24/19 13:25 12/26/19 10:05 Lasix - PO 40 mg DAILY NADIA Administration Lisinopril 10 mg 12/26/19 10:00 12/26/19 10:05 Prinivil PO 10 mg BID NADIA Administration Melatonin 3 mg 12/25/19 22:00 12/25/19 22:13 Melatonin PO 3 mg HS NADIA Administration Metoprolol Succinate 50 mg 12/25/19 07:56 12/26/19 10:05 Toprol Xl - PO 50 mg DAILY NADIA Administration Multivitamins/Minerals/Vitamin C 1 tab 12/23/19 21:30 12/26/19 10:05 Tab-A-Vit - PO 1 tab DAILY NADIA Administration Nystatin 1 applic 12/25/19 10:00 12/26/19 10:06 Nystop Powder - TP 1 applic DAILY NADIA Administration Thiamine HCl 100 mg 12/23/19 21:30 12/26/19 10:05 Vitamin B1 - PO 100 mg DAILY NADIA Administration ECHO Results: The left ventricular size, thickness and function are normal Ejection Fraction = 60%. The left atrium is moderately dilated. The right atrium is moderately dilated. There is trivial mitral valve thickening. There is mild mitral annular calcification. There is mild mitral regurgitation. There is trace tricuspid regurgitation. There is mild aortic valve thickening. Trace aortic regurgitation. ASSESSMENT/PLAN: Lynda Odonnell is an 89 year old female with a past medical history of HTN, prior fall in October 2019 w/ C2 fracture, history of possible alcohol abuse admitted for left hip pain s/p fall. Mechanical fall - CT head neg for acute pathology - XR b/l hips, lumbar XR negative for acute fracture - CT c-spine no longer indicating fracture - CT scan with no evidence of fracture, repeat CT as patient continues to have pain with leg movement - CPK elevation resolved with fluid hydration - B12, folate, tsh, RPR, alcohol all within normal limits, U-tox negative - fall precautions - physical therapy eval, antalgic gait, ambulated 15ft, requiring minimal assistance of 2, will require SNF Lower extremity swelling - unclear if patient has cardiac history, unlikely cellulitis as there is no warmth, minimal erythema, no WBC, or fevers, continue to monitor - LE U/S with no evidence of DVT - echo as above - podiatry consulted, recs appreciated, can perform nail debridement inpatient or outpatient - Lasix 40mg daily - elevate legs at night L4-L5 spinal stenosis - noted on pelvis CT - neuro consulted, recs appreciated, consider SNF, avoid alcohol A-fib - reported to have during last visit, CHADS-VASC 5 - never started on AC, does not f/u with senior service aide - cardio consulted, recs appreciated - has history of falls and needs gait assesment before initiation of full AC, for now to be on aspirin but currently held due to hematoma, continue Toprol, will likely be on aspirin by discharge Possible blood on left iliopsoas - holding aspirin - repeat CT scan pending - pending improvement can be discharged HTN urgency - lisinopril 10mg bid, metoprolol 50mg daily, continue to monitor for improvement and titrate medications for optimization of BP - EKG: a-fib. qtc 445. No ST changes EtOH abuse - monitor for withdrawals - advise cessation - multivitamin/ folic acid/ thiamine - fall & seizure precautions Hyperbilirubinemia - total bili 1.2, direct 0.4 - RUQ U/S noting fatty infiltration vs hepatocellular disease and hepatic hypoechoic density 2.6x1.8cm cyst - recommending outpatient CT f/u and GI f/u Possible 2cm ovarian cyst - will need outpatient f/u with BATCH BLENDER - will need repeat CT scan or MRI in 2 months DVT PPX - SCDs FEN - no standing fluids - continue to monitor electrolytes and replete as necessary - sodium controlled diet Dispo - continue to monitor on med surg - patient amenable to SNF for strength and gait training Visit type - Emergency Visit Emergency Visit: Yes ED Registration Date: 12/23/19 Care time: The patient presented to the Emergency Department on the above date and was hospitalized for further evaluation of their emergent condition. - New Patient This patient is new to me today: No - Critical Care Critical Care patient: No
[2019-12-26 21:04] VITALS: TEMP 98.2
[2019-12-26] MEDS: MELATONIN 1 MG TABLET PO SCH (22:30)
[2019-12-27] MEDS ORDERED: LORazepam 2 MG/ML SDV VIAL IVPUSH ONE ×2 (04:08→06:06)
[2019-12-27] MEDS ORDERED: LISINOPRIL 20 MG TABLET (FP) PO SCH (09:13)
[2019-12-27] MEDS: MULTIVITAMINS (DAILY MVI) TABLET (FP) PO SCH (09:15)
[2019-12-27] MEDS: FUROSEMIDE 20 MG TABLET (FP) PO SCH (09:15)
[2019-12-27] MEDS: THIAMINE HCL 100 MG TABLET (FP) PO SCH (09:15)
[2019-12-27] MEDS: ASPIRIN 81 MG CHEWABLE TABLETS PO SCH (09:15)
[2019-12-27] MEDS: FOLIC ACID 1 MG TABLET (FP) PO SCH (09:15)
[2019-12-27] MEDS: LISINOPRIL 10 MG TABLET (FP) PO SCH (09:15)
--- NOTE | 2019-12-27 09:15 | PN ---
Teaching Attending Note Name of Resident: Corky Mejia ATTENDING PHYSICIAN STATEMENT I saw and evaluated the patient. I reviewed the resident's note and discussed the case with the resident. I agree with the resident's findings and plan as documented. SUBJECTIVE: Patient is feeling better but as difficulty with ambulation. No fever or chills. OBJECTIVE: Vital Signs Temperature 98.2 F 12/26/19 20:58 Pulse Rate 74 12/26/19 20:58 Respiratory Rate 20 12/26/19 20:58 Blood Pressure 146/66 12/26/19 20:58 O2 Sat by Pulse Oximetry (%) 98 12/26/19 20:58 GENERAL: The patient is awake, alert, and fully oriented, in no acute distress. HEAD: Normal with no signs of trauma. EYES: PERRL, extraocular movements intact, sclera anicteric, conjunctiva clear. ENT: Ears normal, oropharynx clear without exudates, moist mucous membranes. NECK: Trachea midline, full range of motion, supple. LUNGS: decreased BS BL otherwise CTA BL , no wheezes, no crackles, no accessory muscle use. HEART: irregularly-irregular rate is controlled, S1, S2 positive, LUKASZ 2/6 , no rub or gallop. ABDOMEN: Soft, NT, ND, normoactive bowel sounds, no guarding, no rebound, no hepatosplenomegaly, no masses. EXTREMITIES: 2+ pulses, warm, well-perfused, no edema. NEUROLOGICAL: Cranial nerves II through XII grossly intact. Normal speech, gait not observed. PSYCH: Normal mood, normal affect. SKIN: Warm, dry, normal turgor, no rashes or lesions noted CBCD WBC 5.0 K/mm3 (4.0-10.0) 12/26/19 06:05 RBC 3.32 M/mm3 (3.60-5.2) L 12/26/19 06:05 Hgb 11.4 GM/dL (10.7-15.3) 12/26/19 06:05 Hct 33.8 % (32.4-45.2) 12/26/19 06:05 MCV 101.8 fl (80-96) H 12/26/19 06:05 MCHC 33.6 g/dl (32.0-36.0) 12/26/19 06:05 RDW 17.1 % (11.6-15.6) H 12/26/19 06:05 Plt Count 107 K/MM3 (134-434) L 12/26/19 06:05 MPV 8.3 fl (7.5-11.1) 12/26/19 06:05 CMP Sodium 140 mmol/L (136-145) 12/26/19 06:05 Potassium 3.6 mmol/L (3.5-5.1) 12/26/19 06:05 Chloride 104 mmol/L (98-107) 12/26/19 06:05 Carbon Dioxide 29 mmol/L (21-32) 12/26/19 06:05 Anion Gap 7 MMOL/L (8-16) L 12/26/19 06:05 BUN 14.2 mg/dL (7-18) 12/26/19 06:05 Creatinine 0.9 mg/dL (0.55-1.3) 12/26/19 06:05 Random Glucose 81 mg/dL (74-106) 12/26/19 06:05 Calcium 8.5 mg/dL (8.5-10.1) 12/26/19 06:05 Total Bilirubin 1.0 mg/dL (0.2-1) 12/24/19 06:00 AST 23 U/L (15-37) 12/24/19 06:00 ALT 13 U/L (13-61) 12/24/19 06:00 Alkaline Phosphatase 103 U/L (45-117) 12/24/19 06:00 Total Protein 5.6 g/dl (6.4-8.2) L 12/24/19 06:00 Albumin 2.7 g/dl (3.4-5.0) L 12/24/19 06:00 CARDIAC ENZYMES Creatine Kinase 154 U/L (26-192) 12/24/19 06:00 Troponin I 0.03 ng/ml (0.00-0.05) 12/23/19 22:52 Current Medications Generic Name Dose Route Start Last Admin Trade Name Freq PRN Reason Stop Dose Admin Aspirin 81 mg 12/24/19 13:45 12/26/19 10:05 Asa - PO 81 mg DAILY NADIA Administration Bacitracin 0.9 gm 12/24/19 00:30 12/26/19 22:30 Bacitracin - TP 0.9 gm BID NADIA Administration Folic Acid 1 mg 12/23/19 21:30 12/26/19 10:05 Folic Acid - PO 1 mg DAILY NADIA Administration Furosemide 40 mg 12/24/19 13:25 12/26/19 10:05 Lasix - PO 40 mg DAILY NADIA Administration Lisinopril 20 mg 12/27/19 09:13 Prinivil PO BID NADIA Melatonin 3 mg 12/25/19 22:00 12/26/19 22:30 Melatonin PO 3 mg HS NADIA Administration Metoprolol Succinate 50 mg 12/25/19 07:56 12/26/19 10:05 Toprol Xl - PO 50 mg DAILY NADIA Administration Multivitamins/Minerals/Vitamin C 1 tab 12/23/19 21:30 12/26/19 10:05 Tab-A-Vit - PO 1 tab DAILY NADIA Administration Nystatin 1 applic 12/25/19 10:00 12/26/19 10:06 Nystop Powder - TP 1 applic DAILY NADIA Administration Thiamine HCl 100 mg 12/23/19 21:30 12/26/19 10:05 Vitamin B1 - PO 100 mg DAILY NADIA Administration Home Medications Medication Instructions Recorded Aspirin [ASA -] 81 mg PO DAILY tab.chew 12/26/19 Folic Acid - 1 mg PO DAILY tablet 12/26/19 Furosemide [Lasix -] 40 mg PO DAILY tablet 12/26/19 Metoprolol Succinate [Toprol XL -] 50 mg PO DAILY tab.sr.24h 12/26/19 Multivitamins [Multivit ([facility] 1 tab PO DAILY tab 12/26/19 Formulary)] Nystatin Powder [Nystop Powder -] 1 applic TP DAILY applic 12/26/19 Thiamine HCl [Vitamin B1 -] 100 mg PO DAILY tablet 12/26/19 Lisinopril [Prinivil] 20 mg PO BID tablet 12/27/19 CT abdomen and pelvis: no pelvis or left hip fracture is seen. Ileopsoas muscle is larger than the left and focal slightly increased internal density possible representing blood. no discrete hematoma is visualized. 2cm left ovarian cyst, [address] or MRI is suggested Assessment and plan: Patient is an 89yof with Pmhx of A-fib.( not on AC) C 2 Fx, recurrent falls, ETOH use, and HTN who presented with a fall few days ago. # s/p Fall: due to muscle weakness/deconditioning/ imbalance . no fx noted on the trauma w/u. but showed possible blood density in L iliopsoas muscle. repeat the left hip CT , no fx is reported and no change from previous CT, as above. On aspirin now continue. follow up CT of abdomen and Pelvis in a week period. Per PT evaluation , patient walked 15 feet only, going to rehab. # Acute Diastolic heart failure: continue oral lasix 40 mg daily, Echo reviewed. # H/o A fib: CHADS2-VASC is 5; high risk for stroke. but the risk for bleeding given her frequent falls, and non compliance. Also, she already has CT evidence of possible , blood in L iliopsoas muscle , off heparin gtt now, H/H stable ,on Toprol XL 50mg daily continue. Hold off starting heparin due to the bleeding in L iliopsoas muscle , possible hematoma . continue aspirin. # HTN urgency : cont. metoprolol, lisinopril # Possible iliopsoas bleed on CT scan: repeat CT scan stable, continue ASA for now. # Incidental liver lesion/cyst. need out pt monitoring and imaging (triple face CT or MRI ) # L ovarian cyst, 2 cm. Out pt follow up # Spinal stenosis at level or L4-L5. out pt f/u with neuro sx # fungal infection under R breast: use topical nystatin powder. DVT Px: SCDs
[2019-12-27] MEDS: BACITRACIN 0.9 GM PACKET TP SCH (09:16)
[2019-12-27] MEDS: NYSTATIN POWDER 100,000 UNITS/GM - 15 GM TOPICAL POWDER TP SCH (09:16)
--- NOTE | 2019-12-27 09:50 | PN ---
Progress Note, Physician Chief Complaint: no SOB EDEMA much improved TELE: SOCORROR, AVILAC - Current Medication List Current Medications: Active Medications Aspirin (Asa -) 81 mg PO DAILY [facility] Last Admin: 12/27/19 09:15 Dose: 81 mg Bacitracin (Bacitracin -) 0.9 gm TP BID [facility] Last Admin: 12/27/19 09:16 Dose: 0.9 gm Folic Acid (Folic Acid -) 1 mg PO DAILY [facility] Last Admin: 12/27/19 09:15 Dose: 1 mg Furosemide (Lasix -) 40 mg PO DAILY [facility] Last Admin: 12/27/19 09:15 Dose: 40 mg Lisinopril (Prinivil) 20 mg PO BID [facility] Last Admin: 12/27/19 09:50 Dose: 20 mg Melatonin (Melatonin) 3 mg PO HS [facility] Last Admin: 12/26/19 22:30 Dose: 3 mg Metoprolol Succinate (Toprol Xl -) 50 mg PO DAILY [facility] Last Admin: 12/27/19 09:15 Dose: 50 mg Multivitamins/Minerals/Vitamin C (Tab-A-Vit -) 1 tab PO DAILY [facility] Last Admin: 12/27/19 09:15 Dose: 1 tab Nystatin (Nystop Powder -) 1 applic TP DAILY [facility] Last Admin: 12/27/19 09:16 Dose: 1 applic Thiamine HCl (Vitamin B1 -) 100 mg PO DAILY [facility] Last Admin: 12/27/19 09:15 Dose: 100 mg - Objective Vital Signs: Vital Signs Temperature 98.2 F 12/26/19 20:58 Pulse Rate 74 12/26/19 20:58 Respiratory Rate 20 12/26/19 20:58 Blood Pressure 146/66 12/26/19 20:58 O2 Sat by Pulse Oximetry (%) 98 12/26/19 20:58 Constitutional: Yes: No Distress, Calm Cardiovascular: Yes: Regular Rate and Rhythm Respiratory: Yes: CTA Bilaterally Gastrointestinal: Yes: Soft Edema: No Neurological: Yes: Alert, Oriented Labs: CBC, BMP 12/26/19 06:05 12/26/19 06:05 INR, PTT INR 1.04 (0.83-1.09) 12/24/19 06:00 - ....Imaging EKG: Image Reviewed Assessment/Plan Assessment/Plan IMP: Recurrent mechanical falls. LE cellulitis Atrial fibrillation Suspected chronic diastolic CHF with mild exacerbation REC: 1. PT evaluation to assess gait stability to help us in assessing for safety of terminal press operator full AC 2. rate controlled, continue toprol 3. Cont ASA 81mg daily for now. Based on her hx of ETOH and recurrent falls ( one of which resulted in a C2 fracture) it does not seem like she is a candidate for terminal press operator full AC. Risks seem to outweigh benefits in this case. PT evaluation for gait stability. 4. Cont Lasix 40mg PO daily, echo here unremarkable. 5. Treatment of suspected cellulitis as per primary team D/C TELE
--- NOTE | 2019-12-27 09:59 | PN ---
Progress Note (short form) - Note Progress Note: 89 year old female history of htn, atrial fibrillation, c2 fracture in 2019, alcohol abuse. Patient fell at home, while trying to get out of bed. She denies any dizziness, or loc. There is no other focal neurological symptoms. She lives alone in [place] with help of [employer].Patient has history of alcohol abus e in past. She is complaining of left hip pain and difficulty lifting left leg. Patient is feeling better and able to walk with walker, going to Short term rehab . NEUROLOGICAL EXAMIANTION Alert oriented x 3, neck is supple afebrile eomi, pupil reactive no face asymmetry, sensation on face is normal moving all ext ct head is unremarkable Assessment/Plan 9 year old female history of htn, atrial fibrillation, c2 fracture in 2019, alcohol abuse. SHe came with a fall, which seems to be mechanical, there is no evidence of stroke, syncope or cord compression. She is doing better. She is feeling better and able to ambulate Plan: continue current level of care - patient going to short term rehab, follow up outpatient. Thanking you so much Harmeet Logan MD
[2019-12-27 10:04] LABS: HEMOGLOBIN 12.2 GM/dL (10.7-15.3); MCH 33.7 pg (25.7-33.7); MCHC 32.9 g/dl (32.0-36.0); MEAN CELL VOLUME 102.5 fl (80-96); MEAN PLT VOLUME 8.4 fl (7.5-11.1); PLATELET COUNT 124 K/MM3 (134-434); RBC 3.61 M/mm3 (3.60-5.2); RDW 17.1 % (11.6-15.6); WHITE BLOOD COUNT 5.8 K/mm3 (4.0-10.0)
[2019-12-27 11:06] VITALS: BP 176/92; PULSE 83
--- NOTE | 2019-12-27 11:52 | DS ---
Physical Exam: SUBJECTIVE: Patient seen and examined at the bedside. Stated she was feeling well and denied any acute complaints of cp, sob, abd pain, n/v/c/d, fever, chills, headaches, dizziness, lightheadedness. OBJECTIVE: Vital Signs Period Temp Pulse Resp BP Sys/Rosado Pulse Ox Last 24 Hr 98.2 F-98.4 F 74-87 20-20 144-176/66-92 98-98 PHYSICAL EXAM GENERAL: The patient is awake, alert, and fully oriented, in no acute distress. HEAD: Normal with no signs of trauma. EYES: PERRL, extraocular movements intact, conjunctiva clear. ENT: Oropharynx clear without exudates, moist mucous membranes. LUNGS: Bibasilar crackles improved, no coarse breath sounds or auscultated wheezes. HEART: Normal rate and irregular rhythm, S1, S2 without murmur. ABDOMEN: Soft, obese, nontender, nondistended, normoactive bowel sounds, no guarding, no rebound, no masses. Noted rash underneath the R breast. EXTREMITIES: Poorly palpated pulses. 1+ edema on the legs bilaterally up to the ankles. Feet dry. NEUROLOGICAL: Cranial nerves II through XII grossly intact. Lower extremities 4/ 5 bilaterally. PSYCH: Normal mood, normal affect. SKIN: As above on extremities. Very dry. Erythema noted on the bilateral legs suggestive of venous stasis dermatitis. Diffuse ecchymoses throughout, especially prominent on the posterior side of the R leg. LABS Laboratory Results - last 24 hr 12/26/19 12/26/19 12/27/19 15:20 15:20 09:43 WBC 5.8 RBC 3.61 Hgb 12.2 Hct 37.0 MCV 102.5 H MCH 33.7 MCHC 32.9 RDW 17.1 H Plt Count 124 L MPV 8.4 Urine Color Yellow Urine Appearance Clear Urine pH 6.5 Ur Specific [place] 1.015 Urine Protein Negative Urine Glucose (UA) Negative Urine Ketones Negative Urine Blood 3+ H Urine Nitrite Negative Urine Bilirubin Negative Urine Urobilinogen 0.2 Ur Leukocyte Esterase Negative Opiates Screen Negative Methadone Screen Negative Barbiturate Screen Negative Phencyclidine Screen Negative Ur Amphetamines Screen Negative MDMA (Ecstasy) Screen Negative Benzodiazepines Screen Negative Cocaine Screen Negative U Marijuana (THC) Screen Negative HOSPITAL COURSE: Lynda Odonnell is an 89 year old female with a past medical history of HTN, prior fall in October 2019 w/ C2 fracture, history of possible alcohol abuse admitted for left hip pain s/p fall. Patient had a head CT that was negative for acute pathology. Bilateral hips and lumbar x-ray are negative for acute fracture. CT of the C-spine with no evidence of fracture. She ambulated 15 feet with poor gait and was a candidate for SNF. Patient was noted to have a history of atrial fibrillation not on anticoagulation. Was seen by cardiology while admitted and determined to be a poor candidate for AC as she has a history of falls. Was started on aspirin for prophylaxis and toprol 50mg daily for rate control and advised to follow up with a tube depatcher outpatient. Had an echocardiogram with results as below. Was noted to have lower extremity swelling, duplex of lower extremities negative for DVT. Was started on Lasix 40mg daily as per cardiology, advised to elevate her legs at night, follow up with cardiology and follow up with podiatry for foot care. While admitted was started on Toprol 50mg and lisinopril 10mg bid for adequate blood pressure control. Had hyperbilirubinemia on labs. RUQ U/S noted noting fatty infiltration vs hepatocellular disease and hepatic hypoechoic density 2.6x1.8cm cyst and advised for outpatient CT and GI follow up. Was found with ovarian cyst and advised for SERVICENOW ADMINISTRATOR follow up and CT scan in 2 months. Patient was advised to cease drinking alcohol. While admitted noted to have an area in the left iliopsoas muscle representing blood. Repeat CT scan noted no change in the blood size. Patient was recommended for follow up CT scans. Patient was started on aspirin 81mg, Toprol 50mg daily, lisinopril 10mg bid, Lasix 40mg daily, nystatin powder to be applied underneath the right breast, thiamine, folic acid, multivitamin. Was advised to follow up with her PCP, GI, SERVICENOW ADMINISTRATOR, podiatry, neurology, cardiology. Patient was spoken to and agreed with the plan of going to SNF and following up with the physicians. Patient was discharged in stable medical condition. ECHO Results: The left ventricular size, thickness and function are normal Ejection Fraction = 60%. The left atrium is moderately dilated. The right atrium is moderately dilated. There is trivial mitral valve thickening. There is mild mitral annular calcification. There is mild mitral regurgitation. There is trace tricuspid regurgitation. There is mild aortic valve thickening. Trace aortic regurgitation. Date of Admission:12/23/19 Date of Discharge: 12/27/19 Minutes to complete discharge: 35 Discharge Summary Problems reviewed: Yes Reason For Visit: FALL Condition: Improved - Instructions Diet, Activity, Other Instructions: You were admitted after you sustained a fall. A head CT did not show any changes. You had a CT scan of your cervical spine which did not show any changes or fractures. You were evaluated by physical therapy and thought that you may benefit from strength training and rehab. You were found to have an abnormal heart rhythm and evaluated by cardiology who recommended that you be started on a medication to help prevent clotting and a medication to control your hear rate. You were started on medications to help with your leg swelling. A scan showed that you did not have any clots in your legs. An echocardiogram (ultrasound of the heart) showed normal size, function, and thickness of the heart and some valve abnormalities and were advised to follow up with a tube depatcher (heart doctor). You had an ultrasound of your liver showed fatty changes and a cyst for which you are recommended to follow up with a telephone interceptor operator (stomach, liver, intestine doctor). You are advised to have a CT scan of your abdomen to further evaluate this lesion. You were found to have a ovarian cyst for which you are recommended to follow up with a movement therapist. You should have a CT scan in 2 months to evaluate the cyst. You were found to have an fluid around your thighs and pelvis on CT scan. You are advised to have a repeat CT scan of those areas in 2 weeks. You were found to have blood in your urine, please follow up with your assessment rn to discuss and monitor this. MEDICATIONS START to take Lasix 40mg once daily. START to take aspirin 81mg once daily. START to take metoprolol succinate 50mg once daily. START to take lisinopril 10mg twice daily. START to take nystatin powder and apply underneath your right breast once daily. START to take thiamine 100mg once daily. START to take folic acid 1mg once daily. START to take a multivitamin once daily. REFERRALS Please follow up with your primary care doctor, Dr. Irving, within 1 week. Please follow up with the tube depatcher, Dr. Goel, within 1 week. Please follow up with the telephone interceptor operator, Dr. Russell, within 2 weeks. Please follow up with the ornamental iron worker, Dr. Bosch, within 1 week. Please follow up with the neurologist, Dr. Logan, within 1 week. Please follow up with the the movement therapist, Dr. Vasquez, within 1 week. Please follow up with the Hotel Manager, Dr. Jaquez, within 2 weeks. SPECIAL INSTRUCTIONS Be careful when you walk around to avoid any falls. Make sure to follow up with all of your physicians and take all the medications prescribed to you. Avoid drinking alcohol as it can prevent numerous medical problems and can help prevent falls. Have lab work for a CMP and UA in 1 week with your primary care physician. If you have further symptoms of falls, dizziness, lightheadedness, chest pain, shortness of breath, fevers, or any other general feelings of unwellness, please call 911 or go your nearest emergency room. Referrals: Harmeet Logan MD [Staff Physician] - 2 Weeks Bayron Bosch MD [Staff Physician] - 1 Week Tung Irving MD [Primary Care Provider] - 1 Week Charlie Russell DO [Staff Physician] - 2 Weeks Luís Goel MD [Staff Physician] - 1 Week Merline Vasquez MD [Staff Physician] - 2 Weeks Arvin Jaquez MD [Staff Physician] - 1 Week Disposition: [facility] F[facility]ILITY - Home Medications Comprehensive Discharge Medication List: Ambulatory Orders Aspirin [ASA -] 81 mg PO DAILY tab.chew 12/26/19 Folic Acid - 1 mg PO DAILY tablet 12/26/19 Furosemide [Lasix -] 40 mg PO DAILY tablet 12/26/19 Metoprolol Succinate [Toprol XL -] 50 mg PO DAILY tab.sr.24h 12/26/19 Multivitamins [Multivit ([facility] Formulary)] 1 tab PO DAILY tab 12/26/19 Nystatin Powder [Nystop Powder -] 1 applic TP DAILY applic 12/26/19 Thiamine HCl [Vitamin B1 -] 100 mg PO DAILY tablet 12/26/19 Lisinopril [Prinivil] 20 mg PO BID tablet 12/27/19 This patient is new to me today: No Emergency Visit: Yes ED Registration Date: 12/23/19 Care time: The patient presented to the Emergency Department on the above date and was hospitalized for further evaluation of their emergent condition. Critical Care patient: No - Discharge Referral Referred to [facility] Med P.[facility] Yes Physician Referral: Migue Russell DO (GI)
== END 2019-12-27 11:00 | DRG 291 ==
LOC: JER 14:05 → JERBED 19:50 → J4W 12-24 21:25
PROVIDERS: ADMIT Internal Medicine; ATTEND Internal Medicine
DX: I11.0 Hypertensive heart disease with heart failure (principal); I50.31 Acute diastolic (congestive) heart failure; S12.100A Unspecified displaced fracture of second cervical vertebra, initial encounter for closed fracture; B48.8 Other specified mycoses; M62.82 Rhabdomyolysis; I31.3 Pericardial effusion (noninflammatory); L03.116 Cellulitis of left lower limb; I16.0 Hypertensive urgency; K76.9 Liver disease, unspecified; N83.202 Unspecified ovarian cyst, left side; M48.061 Spinal stenosis, lumbar region without neurogenic claudication; R29.6 Repeated falls; A63.0 Anogenital (venereal) warts; F10.10 Alcohol abuse, uncomplicated; E80.6 Other disorders of bilirubin metabolism; I87.2 Venous insufficiency (chronic) (peripheral); I48.91 Unspecified atrial fibrillation; D75.89 Other specified diseases of blood and blood-forming organs; W18.39XA Other fall on same level, initial encounter; Y92.89 Other specified places as the place of occurrence of the external cause; Y99.8 Other external cause status
CPT/HCPCS: 36415; 70450-TC; 71045-TC-FY; 72100-TC-FY; 72125-TC; 72192-TC; 73502-TC-LT-FY; 73502-TC-RT-FY; 73700-TC-RT; 76705-TC; 80048; 80053; 80307; 81003; 82248; 82550; 82553; 82607; 82746; 83735; 83880; 84100; 84443; 84484; 85025; 85027; 85610; 85730; 86593; 90670; 93005; 93010; 93306-TC; 93970-TC; 97116-GP; 97162-GP; 99285-25; J0131; J1644; J7030